=== PATIENT | male | born 1965 | race Caucasian/White ===

== ENCOUNTER → 2016-08-28 | Outpatient (CLI) | payer MEDICARE ==
[2015-09-07 17:17] VITALS: BP 175/96
[~2016-08-28] MED LIST: HYDR-2762 PO; OXYC-244 PO; VITA1TAB19 PO; WARF7.5T PO; brintellix PO
--- NOTE | 2016-08-29 03:39 | PAIN ---
DATE OF SERVICE: 08/28/2016 DIAGNOSES: 1. Cervical radiculopathy with cervical degenerative disk disease and cervical spine stenosis. 2. Lumbar radiculopathy with lumbar degenerative disk disease. HISTORY OF PRESENT ILLNESS: The patient is a 51-year-old male who returns for followup status post previous cervical and lumbar epidural steroid injections and medication management with hydrocodone. The patient last seen in January 2016. The patient was doing well with the medication and he was able to make 120 pills last for several months, but has been out now for about 3 weeks or so. The patient reports the hydrocodone is becoming less and less effective with decreasing his pain, was initially about 70-80% improvement, now is about 50% improvement and feels that he is developing some tolerance to medication. We discussed this in some detail. Most likely as he is on this for many years, we will make some adjustments for him today. The patient reports the pain is in the base of the neck and bilateral upper extremities as well as the low back where it is anywhere from a 5-10 on a scale of 10 with motion activity, is having some difficulty sleeping as well. The pain is mostly intermittent in quality, but always present and is a stabbing pain in the base of the neck, shoulders, and upper extremities as well as a stabbing pain in the low back. The patient reports muscle tightness as well as aching and dull with occasional radiation to the bilateral posterior gluteus and posterior thighs as well as the upper extremities with some tingling, more on the right than the left side, but only intermittently. The patient reports no new motor or sensory deficits, no new bowel or bladder incontinence or other complaints. PHYSICAL EXAMINATION: VITAL SIGNS: Today, the patient's blood pressure is 161/107, pulse 78, respirations 18, temperature 98.0 degrees Fahrenheit, height is 5 feet 5 inches, weighs 185 pounds. GENERAL: The patient is awake, alert, oriented, appropriate, very pleasant demeanor. HEENT: Head shows normocephalic, atraumatic. Extraocular movements are intact and symmetrical. Oral cavity shows mucous membranes moist and pink. Dentition is intact. NECK: Shows anterior throat supple without palpable lymphadenopathy noted. Swallow reflex is symmetrical. Posterior cervical musculature shows some moderate tenderness with palpation in the inferior aspect of the cervical paraspinous muscles as well as superior medial trapezius, but is symmetrical. The patient shows good rotational motion both laterally greater than 45 degrees right and left as well as full extension and full forward flexion without significant difficulty or pain reported. CHEST: Shows normal on inspection. Breath sounds are clear to auscultation bilaterally. HEART: Shows S1 and S2 clear. No murmurs are auscultated. ABDOMEN: Soft, nontender, nondistended. No palpable organomegaly is noted. No rebound or guarding demonstrated. BACK: Shows spine grossly midline. The patient has some moderate tenderness with palpation in the lumbar paraspinous musculature, but appears roughly symmetrical on inspection. No trigger points. No radiation of pain and some mild tenderness diffusely bilaterally, but without radiation. No tenderness over the sacrum or sacroiliac regions. The patient shows good rotational motion of lumbar spine, both laterally greater than 10 degrees right and left as well as extension greater than 10 degrees, forward flexion 45 degrees without exacerbation of pain. EXTREMITIES: Upper extremity deep tendon reflexes at 2+ in the biceps and triceps tendons. Lower extremities are 1+ patellar and tendo calcaneus tendons. Motor exam is strong with leather flesher strength rated at 5/5 as is biceps and triceps flexion. Lower extremities showed dorsiflexion, extension, quadriceps and hamstring flexion are all equal and 5/5 as well. Peripheral pulses are 2+ radial distribution and 1+ posterior tibial distribution. No peripheral edema is noted in any of the extremities. Options were discussed with the patient. At this time, the patient's old chart was reviewed and his current medication regimen updated. Current review of systems updated today as well. We will change the patient's hydrocodone to oxycodone 10 mg with instructions, side effects to be aware of discussed with the medication. Also, the patient's blood pressure was elevated at 161/107. We discussed this with him and he will followup with his primary care physician as well. As we did check it again, it is 162/111. The patient is not taking any medications for this currently. The patient was counseled as to follow up with his primary physician, he has an appointment in about 3 weeks by his report and will check this out with him. Follow up in approximately 2 months or as necessary. The patient would like to call for next appointment. TIFFANIE MARTINEZ MD DR: MARVEL/yany JOB#: [id number] / [id number]
== END | disposition home or self-care (01) ==
LOC: PNCL 08:06
PROVIDERS: ATTEND Anesthesiology
DX: M50.10 Cervical disc disorder with radiculopathy, unspecified cervical region (principal); M48.02 Spinal stenosis, cervical region; M51.36 Other intervertebral disc degeneration, lumbar region
CPT/HCPCS: G0463

== ENCOUNTER → 2016-10-25 | Outpatient (CLI) | payer MEDICARE ==
[2015-09-07 17:17] VITALS: BP 175/96
[~2016-10-25] MED LIST changes: +CONTRAST GIVEN MC PRN; +IOHEXOL 240 MG/ML 50ML VIAL. PO ONE; +IOHEXOL 300 MG/ML 75 ML VIAL IV ONE
--- NOTE | 2016-10-25 12:20 | RAD ---
CT of the chest, abdomen and pelvis with contrast, 10/25/2016: History: Restaging lymphoma Multidetector CT imaging was performed following oral and IV administration of contrast. No mediastinal or hilar adenopathy is seen. There is minimal calcific plaquing of the thoracic aorta. The heart is of normal size. No axillary adenopathy is evident. Two small groundglass opacities are seen posteriorly in the right lower lobe. The largest of these measures approximately 2.3 cm. Smaller groundglass and linear opacities are present medially in the right middle lobe. These opacities were not evident on the CT component of the 09/28/2014 PET/CT exam. The lungs are otherwise clear. There is no evidence of pleural fluid. No hepatic abnormality is detected. The gallbladder is unremarkable. The pancreas shows no abnormality. The spleen is of normal size. No renal or adrenal abnormality is detected. There is moderate aortoiliac calcific plaquing without evidence of aneurysm. No abdominal or pelvic adenopathy is seen. A cystic structure noted at the right groin level on the previous pelvic CT study of 01/30/2015 has resolved. There is moderate diffuse bladder wall thickening, likely due to chronic bladder outlet obstruction. This was also evident on images from the old PET/CT exam. The bowel loops are not dilated. There appears to be a small hiatal hernia. No free fluid is evident in the abdomen or pelvis. IMPRESSION: 1. Mild groundglass opacities in the right lower lobe and to a lesser degree in the right middle lobe may be due to inflammation and/or scarring. A neoplastic etiology cannot be excluded. CT follow-up is suggested. 2. No chest, abdominal or pelvic adenopathy. PQRS Compliance Statement: One or more of the following individualized dose reduction techniques were utilized for this examination: 1. Automated exposure control 2. Adjustment of the mA and/or kV according to patient size 3. Use of iterative reconstruction technique
== END | disposition home or self-care (01) ==
LOC: CT 07:00
PROVIDERS: ATTEND Internal Medicine Hematology & Oncology
DX: C81.00 Nodular lymphocyte predominant Hodgkin lymphoma, unspecified site (principal)
CPT/HCPCS: 71260; 74177; Q9966; Q9967

== ENCOUNTER → 2016-10-30 | Outpatient (CLI) | payer MEDICARE ==
[2015-09-07 17:17] VITALS: BP 175/96
[~2016-10-30] MED LIST changes: -CONTRAST GIVEN MC PRN; -IOHEXOL 240 MG/ML 50ML VIAL. PO ONE; -IOHEXOL 300 MG/ML 75 ML VIAL IV ONE; -WARF7.5T PO; +WARF7.5T48 PO
--- NOTE | 2016-10-31 02:22 | PAIN ---
DATE OF SERVICE: 10/30/2016 PROGRESS NOTE FOR PAIN CLINIC DIAGNOSES: 1. Cervical radiculopathy with cervical spinal stenosis and cervical degenerative disk disease. 2. Lumbar radiculopathy with lumbar degenerative disk disease. HISTORY OF PRESENT ILLNESS: The patient is a 51-year-old male who returns for followup status post medication management with Percocet that we changed from hydrocodone about 2 months ago. The patient is doing much better with the oxycodone this time with his neck and upper extremity pain. The patient also reports increased low back pain over the past week or so, he has been doing some increasing yard work, not a lot of it, but enough to make his back flare up. The patient does have some history of degenerative disk disease in the lumbar spine as well as the cervical spine, which we have treated in the past as well. The patient reports he is doing very well with the medication ____ about 75% improvement without significant side effects. The patient reports his pain is still anywhere from a 6-10 on a scale of 10, 10 is when he is working in the yard. He is wearing a corset as well today, a lumbar corset, which he reports does help and he wears this occasionally when he is out and about, but not all the time at home. The patient reports no new motor or sensory deficits. He does have a cough and is seeing a machine joint cutter next month regarding some scarring that was found on a chest x-ray by his report. The patient reports no new motor or sensory deficits or other complaints. PHYSICAL EXAMINATION: VITAL SIGNS: Today, the patient's blood pressure is 149/100, pulse 84, respirations are 20, temperature is 98.4 degrees Fahrenheit. Weight is 185 pounds. GENERAL: The patient is awake, alert, oriented, appropriate, very pleasant demeanor. HEENT: Shows normocephalic, atraumatic. Extraocular movements are intact and symmetrical. Oral cavity, his mucous membranes are moist and pink. Dentition is intact. NECK: Shows anterior throat supple without palpable lymphadenopathy noted. Swallow reflex is symmetrical. CHEST: Shows normal on inspection. Breath sounds are clear to auscultation bilaterally. HEART: Shows S1 and S2 clear. ABDOMEN: Obese, soft, nontender, nondistended. No palpable organomegaly is noted. No rebound or guarding is demonstrated. BACK: Shows spine grossly in the midline. Cervical paraspinous muscle shows some moderate tenderness with palpation bilaterally in the cervical paraspinous musculature, but good rotational motion as well as extension and flexion without significant difficulty, but some minor pain reported in the base of the neck and shoulders bilaterally. Lower back shows moderate tenderness, but only diffusely in the lower lumbar distribution and paraspinous distribution without radiation. No tenderness over the sacrum or sacroiliac regions. The patient shows good rotational motion both laterally as well as extension and flexion. EXTREMITIES: Show upper extremity deep tendon reflexes at 2+ in the biceps and triceps tendons. Lower extremities show 1+ patellar and tendo calcaneus tendons. Motor exam is strong with 5/5 administrative office assistant strength, biceps and triceps flexion as well as dorsiflexion, extension, quadriceps and hamstring flexion and symmetrical. PLAN: Options were discussed with the patient. We will refill the patient's oxycodone 10 mg with instructions and side effects to be aware of. Also, to have a urinalysis today as well as narcotic contract renewed today as well. The patient will follow up in approximately 2 months or sooner as necessary, was given instructions as well as side effects to be aware of with the medication. Also discussed the patient's blood pressure was rather high, especially the diastolic reading today. The patient is following up with his primary care physician early part of next month as well and will follow up with his machine joint cutter regarding his x-ray findings and recent cough. TIFFANIE MARTINEZ MD DR: MARVEL/yany JOB#: [id number] / [id number]
== END | disposition home or self-care (01) ==
LOC: PNCL 07:55
PROVIDERS: ATTEND Anesthesiology
DX: M50.10 Cervical disc disorder with radiculopathy, unspecified cervical region (principal); M48.02 Spinal stenosis, cervical region; M51.16 Intervertebral disc disorders with radiculopathy, lumbar region
CPT/HCPCS: G0463

== ENCOUNTER → 2016-12-25 | Outpatient (CLI) | payer MEDICARE ==
[2015-09-07 17:17] VITALS: BP 175/96
[~2016-12-25] MED LIST changes: -OXYC-244 PO; +OXYC-327 PO
--- NOTE | 2016-12-26 00:23 | PAIN ---
DATE OF SERVICE: 12/25/2016 DIAGNOSES: 1. Cervical radiculopathy, cervical spinal stenosis and cervical degenerative disk disease. 2. Lumbar radiculopathy with lumbar degenerative disk disease. HISTORY OF PRESENT ILLNESS: The patient is a 51-year-old male who returns for followup status post medication management after cervical epidural steroid injections and lumbar epidural steroid injections. The patient did fairly well with those, but only for a short period of time. We have been maintaining with narcotic analgesics. He has been taking Percocet 10 mg over the past 2 months and done very well with these. He reports very good level of analgesia with the medication with approximately 80% improvement, but is having increasing low back pain, which is becoming more and more noticeable mostly with standing and walking, but also with sitting, awakens him from sleep at night after about 6 hours. The patient reports it is becoming more and more noticeable with some radiation into the lower extremities occasionally, but mostly just staying in the low back. The patient reports it is worst as 10 on a scale of 10, it is least at a 7 on a scale of 10 and is 7 currently. The patient reports it is dull, aching and sharp alternating with stabbing pain occasionally and is becoming more and more constant. The patient reports no new motor or sensory deficits, no new bowel or bladder incontinence or other complaints. PHYSICAL EXAMINATION: VITAL SIGNS: Shows blood pressure 140/98, pulse 83, respirations are 20, temperature 98.3 degrees Fahrenheit, weight is 186 pounds. GENERAL: The patient is awake, alert, oriented, appropriate, very pleasant demeanor. HEENT: Head shows normocephalic, atraumatic. Extraocular movements are intact and symmetrical. Oral cavity, mucous membranes are moist and pink. Dentition is intact. NECK: Shows anterior throat supple without palpable lymphadenopathy noted. Swallow reflex is symmetrical. CHEST: Shows normal on inspection. Breath sounds clear to auscultation bilaterally. HEART: Shows S1 and S2 clear. No murmurs auscultated. ABDOMEN: Obese, soft, nontender, nondistended. No palpable organomegaly. No rebound or guarding demonstrated. BACK: Shows spine grossly in the midline. Slight exaggeration of thoracic kyphosis, mild flattening of lumbar lordotic curvature. Cervical paraspinous muscle shows some very mild tenderness with palpation in the superior medial trapezius and inferior cervical paraspinous musculature without radiation. The patient's neck shows full rotational motion of cervical spine both laterally as well as extension and flexion without pain reported. Lumbar paraspinous muscle shows symmetrical on inspection, with palpation shows some mild tenderness to palpation but only in the lower lumbar distribution and only diffusely. No tenderness over the spinous processes, sacrum or sacroiliac regions. The patient shows good rotational motion with some mild tenderness with extension as well as forward flexion, but not with right or left lateral rotation greater than 10 degrees. EXTREMITIES: Lower extremities show deep tendon reflexes at 1+ in the patellar and tendo calcaneus tendons. Motor exam is strong with 5/5 dorsiflexion and extension. Options were discussed with the patient and the patient's old chart was reviewed as his current medication regimen updated. Current review of systems updated today as well. The patient has had appropriate K-TRACS reporting as well as appropriate urinalysis to date. We have refilled the patient's Percocet for two-month prescription with instructions, side effects to be aware of discussed. Also, we will check MRI scan of the lumbar spine as the patient is having significantly increased low back pain and we will compare it to a film about 2 years ago to see if there is any significant changes or reason for the increased pain. The patient was given instruction, as well as side effects with the medication to be aware of and will follow up as scheduled. TIFFANIE MARTINEZ MD DR: MARVEL/yany JOB#: [id number] / [id number]
== END | disposition home or self-care (01) ==
LOC: PNCL 11:09
PROVIDERS: ATTEND Anesthesiology
DX: M50.10 Cervical disc disorder with radiculopathy, unspecified cervical region (principal); M48.02 Spinal stenosis, cervical region; M51.16 Intervertebral disc disorders with radiculopathy, lumbar region
CPT/HCPCS: G0463

== ENCOUNTER → 2016-12-26 | Outpatient (CLI) | payer MEDICARE ==
[2015-09-07 17:17] VITALS: BP 175/96
--- NOTE | 2016-12-26 12:34 | RAD ---
MRI Lumbar Spine without contrast History: Low back pain with bilateral leg radiculopathy Technique: Multiplanar, multi sequential noncontrast MR imaging was performed of the lumbar spine. Contrast: None Comparison: None Findings: Lumbar vertebral body stature and AP alignment are preserved. There is mild disc desiccation L5-S1, intervertebral disc spaces overall maintained. There is posterior annular tear L5-S1. Conus terminates at T12-L1. There is likely small hemangioma of the T12 vertebral body, also small focus of L1. There is no significant marrow edema. L2-L3: Spinal canal and the neural foramina are adequate. There is mild buckling of the ligamentum flavum. L3-L4: There is mild buckling of the ligamentum flavum and facet degenerative change. Neural foramina and spinal canal are adequate. L4-L5: There is mild buckling of the ligamentum flavum and facet degenerative change. There is very mild narrowing of the right neural foramen, left neural foramen adequate. Spinal canal is adequate. L5-S1: There is negligible disc osteophyte complex and bulge. There is no displacement descending S1 nerve roots, spinal canal overall adequate. There is mild to moderate right and mild left neural foramina compromise. Impression: 1. There is no significant lumbar spinal stenosis. There is [id number] right and mild left L5-S1 neural foramina compromise. Electronically signed by: Shyam Maguire MD (12/26/2016 12:31 PM)
== END | disposition home or self-care (01) ==
LOC: MRI 15:54
PROVIDERS: ATTEND Anesthesiology
DX: M99.53 Intervertebral disc stenosis of neural canal of lumbar region (principal); Z88.3 Allergy status to other anti-infective agents; Z91.048 Other nonmedicinal substance allergy status
CPT/HCPCS: 72148

== ENCOUNTER → 2017-02-26 | Outpatient (CLI) | payer MEDICARE ==
[2015-09-07 17:17] VITALS: BP 175/96
--- NOTE | 2017-02-26 13:38 | PAIN ---
DATE OF SERVICE: 02/26/2017 PROGRESS NOTE FOR PAIN CLINIC DIAGNOSES: 1. Cervical radiculopathy with cervical spinal stenosis and cervical degenerative disk disease. 2. Lumbar radiculopathy with lumbar degenerative disk disease. HISTORY OF PRESENT ILLNESS: The patient is a 51-year-old male who returns for followup status post previous cervical epidural steroid injections, lumbar epidural steroid injections and medication management. The patient is doing well with the Percocet at 10 mg up to 4 times daily. The patient reports he has had slightly more increased pain in his low back over the last month or month and a half, but otherwise doing fairly well, has had good control with his medication of about 80%-85% without significant side effects. The patient reports that his pain now is a constant, stabbing, aching pain in the low back radiating to the posterior gluteus, posterior thighs, worse at a 10 on a scale of 10 and at least at a 6 and on average at a 8 on a scale of 10. The patient reports some pain in the base of the neck as well, but not to the same extent that he has in the low back. The patient reports no new motor or sensory deficits, no new bowel or bladder incontinence, no side effects again with his medication as noted. The patient reports he is having some difficulty sleeping. He sleeps about 2 hours at a time, has to reposition, change position, get out of bed or take pain medication at night to relieve the pain, but is able to get back to sleep once this occurs. The patient reports no other complaints or findings at this time and feels he is doing fairly well with adequate amount of activity, which he is comfortable doing on a daily basis with the help of the medication. PAST MEDICAL HISTORY: Significant for Hodgkin's lymphoma with chemotherapy and radiation treatment also blood clots and arthritis. PREVIOUS SURGERY: Includes lymph node biopsies only. CURRENT MEDICATIONS: Include Coumadin, vitamin B, Brintellix and Percocet. ALLERGIES: THE PATIENT IS ALLERGIC TO NEOSPORIN AND CERTAIN TAPE ADHESIVES. FAMILY HISTORY: Significant for multiple cancers. SOCIAL HISTORY: The patient still smokes about 1/4 pack of cigarettes, does not drink any alcohol or use any illegal or illicit drugs or other substances. REVIEW OF SYSTEMS: The patient's review of systems is positive for those items mentioned the in history of present illness. It is complete and well documented on the patient's chart. PHYSICAL EXAMINATION: VITAL SIGNS: The patient's blood pressure is 152/98, pulse 73, respirations are 18, temperature 98.2 degrees Fahrenheit, height is 5 feet 5 inches and weighs 187 pounds. GENERAL: The patient is awake, alert, oriented, appropriate, very pleasant demeanor. HEENT: Head shows normocephalic, atraumatic. Extraocular movements are intact and symmetrical. Oral cavity shows mucous membranes moist and pink. Dentition is intact. NECK: Shows anterior throat supple without palpable lymphadenopathy noted. Swallow reflex is symmetrical. CHEST: Shows normal on inspection. Breath sounds are clear to auscultation bilaterally. HEART: Shows S1 and S2 clear. No murmurs auscultated. ABDOMEN: Obese, soft, nontender, nondistended. No palpable organomegaly is noted. No rebound or guarding demonstrated. BACK: The patient's back shows spine grossly in the midline. Normal appearing cervical lordotic curvature, thoracic kyphotic curvature, and lumbar lordotic curvature. The patient is wearing a lumbar support brace on initial exam, with inspection shows some tenderness with palpation on the cervical paraspinous musculature bilaterally, but only into the inferior aspect of the cervical muscles and into the superior medial and slightly lateral on the left greater than right of the trapezius musculature but without radiation and without trigger points. The patient shows full rotational motion of cervical spine, both laterally as well as extension and flexion without difficulty, low back shows inspection with symmetrical lumbar paraspinous musculature bilaterally, no asymmetry, no trigger points, with palpation shows some moderate tenderness, but only diffusely throughout the upper, middle and lower distribution of paraspinous muscles. No difficulty with rotation greater than 10 degrees right and left as well as extension and forward flexion. Lower extremities show deep tendon reflexes at 1+ in the patellar and tendo calcaneus tendons. Motor exam is strong with 5/5 dorsiflexion, extension, quadriceps and hamstring flexion. EXTREMITIES: Upper extremities show deep tendon reflexes 2+ and millinery blocker strength 5/5 as well as biceps and triceps flexion, which is equal at 5/5. Peripheral pulses are 2+ radial, 1+ posterior tibial bilaterally. Options were discussed with the patient and the patient's old chart was reviewed as his current medication regimen updated as noted and review of systems updated again as noted. We will refill the patient's oxycodone at 10 mg with instructions, side effects to be aware of. Also add Flexeril as muscle relaxant, as he may have some benefit from this. He is complaining of some spasms and tightness during the day as well as at night, mainly in the low back, but also in the neck and shoulders. The patient was given instruction as well as side effects to be aware of each of the medications and will follow up in approximately 2 months or sooner if necessary. He was given 2-month prescription refill for each. TIFFANIE MARTINEZ MD DR: MARVEL/yany JOB#: [id number] / [id number]
== END | disposition home or self-care (01) ==
LOC: PNCL 11:32
PROVIDERS: ATTEND Anesthesiology
DX: M48.02 Spinal stenosis, cervical region (principal); M54.12 Radiculopathy, cervical region; M54.16 Radiculopathy, lumbar region; M51.16 Intervertebral disc disorders with radiculopathy, lumbar region; M50.30 Other cervical disc degeneration, unspecified cervical region; Z85.71 Personal history of Hodgkin lymphoma; F17.200 Nicotine dependence, unspecified, uncomplicated
CPT/HCPCS: G0463

== ENCOUNTER → 2017-04-23 | Outpatient (CLI) | payer MEDICARE ==
[2015-09-07 17:17] VITALS: BP 175/96
[~2017-04-23] MED LIST changes: +CYCL10TA2 PO
--- NOTE | 2017-04-23 13:20 | PAIN ---
DATE OF SERVICE: 04/23/2017 DIAGNOSES: 1. Cervical radiculopathy with cervical spinal stenosis and cervical degenerative disk disease. 2. Lumbar radiculopathy with lumbar degenerative disk disease. HISTORY OF PRESENT ILLNESS: The patient is a 52-year-old male who returns for followup status post medication management with oxycodone. The patient is taking 10 mg up to 4 times daily. The patient with previous epidural steroid injections, both lumbar and cervical without significant improvement. The patient has been doing quite well on his medication management, however, with about an 80% improvement overall by his estimation, still some pain in the low back and in the lower extremities, somewhat more on the left than the right, but present bilaterally; worse with activity, standing, walking, bending or flexing. The patient reports a 10 on a scale of 10 at its worst, is 7 on average, about 7 at its least, is aching and shooting pain in the low back and legs, also has pain in the base of the neck and shoulders, but this seems to be somewhat better, again helped significantly with the medications without side effects. The patient reports he does better when he is lying down at night. The patient sleeps about 7 hours a night, but it cannot awaken him. If he does, he can reposition and generally get back to sleep without too much difficulty but sometimes does need to take a pain medication when he is awaken. The patient reports no new motor or sensory deficits, no new bowel or bladder incontinence or other complaints. PHYSICAL EXAMINATION: VITAL SIGNS: The patient's blood pressure 150/99, pulse 99, respirations 18, temperature is 98.4 degrees Fahrenheit. Height is 5 feet 5 inches, weighs 191 pounds. GENERAL: The patient is awake, alert, oriented, appropriate, very pleasant demeanor. HEENT: Head shows normocephalic, atraumatic. Extraocular movements are intact and symmetrical. Oral cavity shows mucous membranes are moist and pink. Dentition is intact. NECK: Shows anterior throat supple without palpable lymphadenopathy noted. Swallow reflex is symmetrical. CHEST: Shows normal on inspection. Breath sounds are clear to auscultation bilaterally. No rales, rhonchi or wheezes auscultated. HEART: Shows S1 and S2 clear. No murmurs auscultated. ABDOMEN: Soft, nontender, nondistended, obese. No palpable organomegaly is noted. BACK: Shows grossly midline spine, normal cervical lordotic curvature, thoracic kyphotic curvature and lumbar lordotic curvature. No previous bruises, lesions, rashes or scars are noted. Lumbar paraspinous muscle shows some moderate tenderness with palpation in the lower lumbar distribution and the middle lumbar distribution, but only diffusely without radiation. Cervical paraspinous musculature shows some mild tenderness only inferiorly, the cervical paraspinous musculature into the trapezius bilaterally as well, again mostly medially without any radiation, without any trigger points throughout the examination. EXTREMITIES: Upper extremities show deep tendon reflexes at 2+ in the biceps and triceps tendons are equal and symmetrical with global implementation manager strength 5/5 as is biceps and triceps flexion. Lower extremities showed deep tendon reflexes 1+ in the patellar and tendo calcaneus tendons. Motor exam is strong with dorsiflexion, extension, quadriceps and hamstring flexion, also rated at 5/5 and equal. Options were discussed with the patient at this time. The patient's old chart was reviewed as his current medication regimen updated. Current review of systems is updated today as well. We will refill the patient's oxycodone 10 mg for 2-month prescription. The patient was given instructions as well as side effects to be aware of the medication. He is also encouraged to increase his activity as tolerated. Continue doing stretching and strengthening exercises daily as well as walking as tolerated. The patient also was encouraged to follow up with his primary care physician and check not only prostate level, but also testosterone level as he has been on the analgesics now for a potential time, which could decrease his testosterone. The patient understands and agrees and will follow up in approximately 2 months or sooner as necessary. TIFFANIE MARTINEZ MD DR: MARVEL/yany JOB#: [id number] / [id number] JOSH Hair MD
== END | disposition home or self-care (01) ==
LOC: PNCL 11:34
PROVIDERS: ATTEND Anesthesiology
DX: M51.16 Intervertebral disc disorders with radiculopathy, lumbar region (principal); M48.02 Spinal stenosis, cervical region
CPT/HCPCS: G0463

== ENCOUNTER → 2017-06-18 | Outpatient (CLI) | payer MEDICARE ==
[2015-09-07 17:17] VITALS: BP 175/96
--- NOTE | 2017-06-18 18:43 | PAIN ---
DATE OF SERVICE: 06/18/2017 DIAGNOSES: 1. Cervical radiculopathy with cervical spinal stenosis and cervical degenerative disk disease. 2. Lumbar radiculopathy with lumbar degenerative disk disease. HISTORY OF PRESENT ILLNESS: The patient is a 52-year-old male who returns for followup status post medication management with oxycodone 10 mg and Flexeril for muscle relaxation. The patient reports he is doing quite well with this. He has been on a very stable regimen, about 80% improvement or more some days, better than others with pain in the low back as primary complaint into the right hip. The patient also reports some minor neck pain, but it is secondary. The patient reports the pain in his low back is radiating from across the low back into both thighs and into the right hip and gluteus, mostly on the posterior aspect of the gluteus and thigh, worse with walking, standing and changing positions. It is aching and shooting in quality, better with sitting or lying down. The patient reports it does not awaken him from sleep usually, but some nights it can, usually about 5-6 hours he is able to sleep without it bothering him. He usually is only lying on his right side. He can easily reposition and get back to sleep without too much difficulty or take pain medication at night. The patient reports the pain is a 10 on a scale of 10 at its worst, 7 on average, 7 at its least and is a 7 today. PHYSICAL EXAMINATION: VITAL SIGNS: The patient's blood pressure is ____, pulse 99, respirations 16, temperature is 98.3 degrees Fahrenheit, height is 5 feet 5 inches, weight is 192 pounds. GENERAL: The patient is awake, alert, oriented, appropriate, very pleasant demeanor. HEENT: Head shows normocephalic, atraumatic. Extraocular movements are intact, symmetrical. Oral cavity: Mucous membranes moist and pink. Dentition is intact. NECK: Shows anterior throat supple without palpable lymphadenopathy noted. Swallow reflex is symmetrical. CHEST: Shows normal with inspection. Breath sounds clear to auscultation bilaterally. HEART: Shows S1, S2 clear. No murmurs auscultated. ABDOMEN: Obese, soft, nontender, nondistended. No palpable organomegaly is noted. No rebound or guarding demonstrated. BACK: Shows spine grossly in the midline. Normal cervical lordotic curvature, thoracic kyphotic curvature, and lumbar lordotic curvature. Cervical paraspinous muscle shows symmetrical on inspection, with palpation shows only very mild tenderness in the middle and lower distribution of the cervical paraspinous muscles, but without radiation, without atrophy, hypertrophy and without trigger points. The patient has good rotational motion of cervical spine, both laterally, greater than 45 degrees right and left as well as full extension and full forward flexion without significant pain reported. Low back shows symmetrical on inspection with lumbar paraspinous musculature, with palpation shows some moderate tenderness bilaterally, but only diffusely in the middle and lower distribution of paraspinous muscles, again without radiation, without trigger points or asymmetry. No tenderness over the sacrum, sacroiliac regions or the spinous processes. The patient has good rotational motion of lumbar spine, both laterally, greater than 10 degrees right and left as well as extension greater than 10 degrees and forward flexion 45 degrees without significant pain reported . EXTREMITIES: Upper extremity deep tendon reflexes 2+ in the biceps and triceps tendons. Motor exam is 5/5 with hand dry cleaner strength. Bicep and tricep flexion rated at 5/5 and equal. Peripheral pulses are 2+. Lower extremities show deep tendon reflexes 1+ in the patellar tendons. Motor exam is strong with dorsiflexion and extension rated at 5/5 and equal. Peripheral pulses are 1+ posterior tibial. No peripheral edema is noted in the lower extremities as well. Options were discussed with the patient. The patient's old chart was reviewed as his current medication regimen updated. Current review of systems updated today as well and we will refill the patient's oxycodone 10 mg with instructions and side effects to be aware of and a 2-month supply. The patient has had appropriate K-TRACS reporting as well as appropriate urinalysis to date. We will have urinalysis done today as well for routine screening and update patient's narcotic contract agreement, which he is given a copy of as well. The patient was given instructions as well as side effects to be aware of with the medication. The patient will follow up in approximately 2 months or sooner if necessary, was given a 2-month prescription. The patient was encouraged to increase activity as tolerated, maintain exercise levels and walking, which he tries to do daily and increase his stretching if tolerated. TIFFANIE MARTINEZ MD DR: Phil JOB#: [id number] / [id number]
== END | disposition home or self-care (01) ==
LOC: PNCL 11:12
PROVIDERS: ATTEND Anesthesiology
DX: M51.16 Intervertebral disc disorders with radiculopathy, lumbar region (principal); M48.02 Spinal stenosis, cervical region; M50.10 Cervical disc disorder with radiculopathy, unspecified cervical region
CPT/HCPCS: G0463

== ENCOUNTER → 2017-08-13 | Outpatient (CLI) | payer MEDICARE | END | disposition home or self-care (01) | LOC: PNCL 10:37 | DX: M51.16 Intervertebral disc disorders with radiculopathy, lumbar region (principal); M50.10 Cervical disc disorder with radiculopathy, unspecified cervical region; M48.02 Spinal stenosis, cervical region; Z88.1 Allergy status to other antibiotic agents; Z88.8 Allergy status to other drugs, medicaments and biological substances; Z91.048 Other nonmedicinal substance allergy status | CPT/HCPCS: 62323 ==

== ENCOUNTER → 2017-09-11 | Outpatient (CLI) | payer MEDICARE | END | disposition home or self-care (01) | LOC: KCIC CT 10:05 | DX: R22.0 Localized swelling, mass and lump, head (principal); Z85.72 Personal history of non-Hodgkin lymphomas | CPT/HCPCS: 70450 ==

== ENCOUNTER → 2017-10-08 | Outpatient (CLI) | payer MEDICARE | END | disposition home or self-care (01) | LOC: PNCL 11:00 | DX: M50.10 Cervical disc disorder with radiculopathy, unspecified cervical region (principal); M48.02 Spinal stenosis, cervical region; M51.16 Intervertebral disc disorders with radiculopathy, lumbar region | CPT/HCPCS: G0463 ==

== ENCOUNTER → 2017-10-20 | Outpatient (CLI) | payer MEDICARE ==
[~2017-10-20] MED LIST changes: +CONTRAST GIVEN MC; -CYCL10TA2 PO; -HYDR-2762 PO; -OXYC-327 PO; -VITA1TAB19 PO; -WARF7.5T48 PO; -brintellix PO
[2017-10-20] MEDS: IOHEXOL 240 MG/ML 50ML VIAL. PO (08:45)
[2017-10-20] MEDS: IOHEXOL 300 MG/ML 100ML VIAL. IV (09:59)
== END | disposition home or self-care (01) ==
LOC: CT 07:51
DX: C81.00 Nodular lymphocyte predominant Hodgkin lymphoma, unspecified site (principal); I10 Essential (primary) hypertension; Z79.01 Long term (current) use of anticoagulants; Z87.891 Personal history of nicotine dependence
CPT/HCPCS: 71260; 74177; Q9966; Q9967

== ENCOUNTER → 2018-02-16 | Outpatient (CLI) | payer MEDICARE | END | disposition home or self-care (01) | LOC: PNCL 09:07 | DX: M50.10 Cervical disc disorder with radiculopathy, unspecified cervical region (principal); M48.02 Spinal stenosis, cervical region; M51.16 Intervertebral disc disorders with radiculopathy, lumbar region; I10 Essential (primary) hypertension; Z79.01 Long term (current) use of anticoagulants; Z85.72 Personal history of non-Hodgkin lymphomas; Z87.891 Personal history of nicotine dependence; Z85.71 Personal history of Hodgkin lymphoma | CPT/HCPCS: G0463 ==

== ENCOUNTER → 2018-06-11 | Outpatient (CLI) | payer MEDICARE ==
[2015-09-07 17:17] VITALS: BP 175/96
[~2018-06-11] MED LIST changes: +ATOR40TA59 PO; +CITA20TA6 PO; -CONTRAST GIVEN MC; +CYCL10TA2 PO; +HYDR-2765 PO; +LISI10TA2 PO; +OXYC1TAB19 PO; +OXYC1TAB22 PO; +VITA1TAB19 PO; +WARF7.5T48 PO; +brintellix PO
--- NOTE | 2018-06-11 12:50 | PAIN ---
DATE OF SERVICE: 06/11/2018 DIAGNOSES: 1. Cervical radiculopathy with cervical degenerative disk disease and cervical spinal stenosis. 2. Lumbar radiculopathy with lumbar degenerative disk disease. HISTORY OF PRESENT ILLNESS: The patient is a 53-year-old male who returns for followup status post medication management with both Flexeril and oxycodone. The patient reports he has been doing fairly well. He has been trying to wean himself down to some extent with taking about 2-2.5 tablets a day instead of up to 4, but the patient reports he ran out and was unable to afford his prescription since his last visit and after last prescription ran out in the middle of April, the patient reports he did not have any significant withdrawal symptoms, but has weaned down and doing fairly well with this, but still having some significant pain in the base of the neck and shoulders as well as the mid back and low back radiating to bilateral lower extremities. The patient reports the pain is aching, tight, cramping, becoming more constant with activity. He has been doing well with the medication; however, he has been on very stable regimen as well as with the Flexeril, which he reports can take place some of the pain medication at times. The patient reports his pain is a 10 on a scale of 10 at its worst, 8-10 on average, is 7 at its least and is an 8 today. The patient reports no new motor or sensory deficit. He does have some pain in the left shoulder without any specific injury. He reports he had some plain films taken, which were negative; however, did not have those available at time of this dictation for review. The patient reports no new motor or sensory deficits or other complaints. PHYSICAL EXAMINATION: VITAL SIGNS: The patient's blood pressure 141/97, pulse 105, respirations 18, temperature 98.8 degrees Fahrenheit. Height 5 feet 6 inches, weighs 190 pounds. GENERAL: The patient is awake, alert, oriented, appropriate, very pleasant demeanor. HEENT: Shows normocephalic, atraumatic. Extraocular movements intact and symmetrical. Oral cavity: Mucous membranes moist and pink. Dentition is intact. NECK: Shows anterior throat supple without palpable lymphadenopathy noted. Swallow reflex symmetrical. The patient's neck shows full rotational motion of cervical spine with some minor tenderness with extension, but not with forward flexion. CHEST: Shows normal with inspection. Breath sounds clear to auscultation bilaterally. HEART: Shows S1, S2 clear. No murmurs auscultated. ABDOMEN: Soft, nontender, nondistended. No palpable organomegaly is noted. No rebound or guarding demonstrated. BACK: Shows spine grossly in the midline. Slight exaggeration of thoracic kyphosis and minor flattening of lumbar lordotic curvature. Moderate tenderness in the cervical paraspinous musculature symmetrically, but without radiation, without trigger points in the middle and lower distribution of the cervical paraspinous muscles. Lumbar paraspinous muscle shows some moderate tenderness, but only diffusely, again in the upper, middle and lower distribution diffusely bilaterally. The patient has good rotational motion both the cervical spine, again with some extension with tenderness, but not with forward flexion. Low back shows good rotation greater than 10 degrees right and left as well as full extension 10 degrees, forward flexion 45 degrees without significant pain reported. The patient's extremities show upper extremity deep tendon reflexes 2+ in biceps, triceps tendons. Airplane Pilot strength is strong with 5/5 and equal bilaterally. Biceps flexion on the left is moderately painful with resistance in the anterior aspect of the upper arm and deltoid region consistent with perhaps biceps tendinitis on the left side. Right side is 5/5 without deficit. EXTREMITIES: Lower extremities show deep tendon reflexes 1+ in the patellar and tendocalcaneous tendons are equal. Motor exam is strong with 5/5 dorsiflexion, extension, quadriceps and hamstring flexion and symmetrical. Peripheral pulses are 2+ radial, 1+ posterior tibial. No peripheral edema is noted bilaterally upper or lower extremities. Options were discussed with the patient. The patient's old chart was reviewed as his current medication regimen updated. Current review of systems updated today as well, and we will refill the patient's Percocet as well as Flexeril for 2-month prescription. The patient was given instruction as well as side effects to be aware of each of medications. The patient has had appropriate K-TRACS reporting as well as appropriate urinalysis to date, and we will refill this for 2-month period. The patient will return to clinic at that time or sooner as necessary. TIFFANIE MATRINEZ MD DR: MARVEL/yany JOB#: [id number] / [id number]
== END | disposition home or self-care (01) ==
LOC: PNCL 09:22
PROVIDERS: ATTEND Anesthesiology
DX: M48.02 Spinal stenosis, cervical region (principal); M50.10 Cervical disc disorder with radiculopathy, unspecified cervical region; M51.16 Intervertebral disc disorders with radiculopathy, lumbar region
CPT/HCPCS: G0463

== ENCOUNTER → 2018-08-06 | Outpatient (CLI) | payer MEDICARE ==
[2015-09-07 17:17] VITALS: BP 175/96
--- NOTE | 2018-08-06 10:51 | PAIN ---
DATE OF SERVICE: 08/06/2018 PROGRESS NOTE FOR PAIN CLINIC DIAGNOSES: 1. Lumbar radiculopathy with lumbar degenerative disk disease. 2. Cervical radiculopathy with cervical spinal stenosis and cervical degenerative disk disease. HISTORY OF PRESENT ILLNESS: The patient is a 53-year-old male who returns for followup status post medication management with Percocet and Flexeril. The patient reports he is doing very well with this and has been on very stable regimen with about a 75% improvement overall with his pain in the low back and also in the neck and shoulder. His main complaint today is left shoulder pain. He is going to see an orthopedic surgeon about this later next week but reports otherwise has been doing fairly well with his medication regimen, is on a very stable regimen. The patient reports still some pain in the neck as well as in the low back aching, cramping, stabbing at times, on and off in intensity, worse with activity, standing, walking, better with sitting or lying down, does not awaken him from sleep at night, most nights. His medications were tolerated well without side effects. The patient reports the pain is 10 on a scale 10 at its worst, 8 on average and 6 at its least and his main pain is in the left shoulder. It is difficult for him to twist items or rotate his arm or lift anything for more than few seconds with his left arm. Again, the patient is having this evaluated with the orthopedic specialists soon. The patient reports no new motor or sensory deficits and no new bowel or bladder incontinence or other complaints. PHYSICAL EXAMINATION: VITAL SIGNS: The patient's blood pressure 169/113, pulse 107, respirations 16 and temperature 98.2 degrees Fahrenheit. Weight is 190 pounds. GENERAL: The patient is awake, alert, oriented, appropriate and very pleasant demeanor. HEENT: Head shows normocephalic and atraumatic. Extraocular movements are intact and symmetrical. Oral cavity: Mucous membranes moist and pink. Dentition is intact. NECK: Shows anterior throat supple without palpable lymphadenopathy noted. Swallow reflex symmetrical. CHEST: Shows normal with inspection. Breath sounds clear to auscultation bilaterally. HEART: Shows S1 and S2 clear. No murmurs auscultated. ABDOMEN: Soft, nontender and nondistended. No palpable organomegaly is noted. No rebound or guarding demonstrated. BACK: Shows spine grossly in the midline. Cervical paraspinous muscle shows symmetrical but with palpation shows some mild tenderness diffusely in the low cervical distribution without radiation. The patient has good rotational motion of the cervical spine, both laterally as well as extension and flexion without difficulty. The patient's low back shows symmetrical as well without atrophy, hypertrophy with palpation shows some moderate tenderness diffusely throughout the upper, middle and lower distribution of the paraspinous muscles bilaterally but only diffusely. The patient has good rotational motion both laterally greater than 10 degrees, right and left as well as extension greater than 10 degrees, forward flexion 45 degrees without difficulty in the lumbar spine. EXTREMITIES: The patient's lower extremities show deep tendon reflexes at 1+ in the patellar and tendo-calcaneus tendons. Motor exam is strong with 5/5 dorsiflexion and extension. Upper extremities show deep tendon reflexes 2+ in the biceps and triceps tendons. Motor exam is strong with mastic sprayer strength rated at 5/5 and equal. The patient's left shoulder does show some moderate tenderness with abduction at about 45 degrees and the patient grimaces with pain and with resistance but without loss of strength. Options were discussed with the patient. The patient's old chart was reviewed as well as his current medication regimen updated. Current review of systems updated today as well. We will refill the patient's medication both the Percocet 10 mg and Flexeril 10 mg with instructions and side effects to be aware of. The patient has had appropriate K-TRACS reporting as well as appropriate urinalysis to date. We will refill the patient's medication for 2-month period with instructions and side effects to be aware of each of these medications. We will have a UA taken today as well as routine screening and renewal of the patient's narcotic contract as well. TIFFANIE MARTINEZ MD DR: MARVEL/yany JOB#: [id number] / [id number]
== END | disposition home or self-care (01) ==
LOC: PNCL 09:55
PROVIDERS: ATTEND Anesthesiology
DX: M51.16 Intervertebral disc disorders with radiculopathy, lumbar region (principal); M48.02 Spinal stenosis, cervical region; M50.10 Cervical disc disorder with radiculopathy, unspecified cervical region
CPT/HCPCS: G0463

== ENCOUNTER → 2018-10-01 | Outpatient (CLI) | payer MEDICARE ==
[2015-09-07 17:17] VITALS: BP 175/96
[~2018-10-01] MED LIST changes: +BUPIVACAINE MPF 0.25% 10 ML VIAL. ONE; +IOHEXOL 180 MG/ML 10 ML VIAL. ONE; +methylPREDNISolone ACETATE 80 MG/ML VIAL. ONE
--- NOTE | 2018-10-01 22:56 | PAIN ---
DATE OF SERVICE: 10/01/2018 PROGRESS NOTE FOR PAIN CLINIC: DIAGNOSES: 1. Cervical radiculopathy with cervical degenerative disk disease and cervical spinal stenosis. 2. Lumbar radiculopathy with lumbar degenerative disk disease. 3. Left shoulder joint pain with osteoarthritis as well. HISTORY OF PRESENT ILLNESS: The patient is a 53-year-old male who returns for followup status post medication management with both oxycodone and Flexeril. The patient has done fairly well with this. He has recent x-rays on his left shoulder showing some moderate arthritic changes in the left shoulder joint itself. The patient reports significant pain in the left shoulder with any motion of the left shoulder, reaching or grabbing items, reaching over his head, reaching to the side as well as lifting items with his left arm. The patient reports it radiates into the left anterior deltoid as well as the posterior shoulder and sometimes into the neck or back on the left side as well. The patient reports a 9 on a scale of 10 at its worst, 7 on average, 5 at its least and is a 7 today. The patient reports it is aching, becoming more constant, especially with activities, disturbing him from sleep about every 6 hours if he lies on the left side. The patient reports no loss of motor function, but significant fatigability and pain with motion of the left shoulder especially reaching forward and lifting items. The patient reports no new motor or sensory deficits. Still some pain in the base of the neck as well as the low back, which were fairly well controlled with the medications about 75-80% without side effects. PHYSICAL EXAMINATION: VITAL SIGNS: Today, the patient's blood pressure 137/97, pulse 94, respirations 18, temperature 98.1 degrees Fahrenheit, height is 5 feet 4 inches, weighs 193 pounds. GENERAL: The patient is awake, alert, oriented, appropriate, very pleasant demeanor. HEENT: Head shows normocephalic, atraumatic. Extraocular movements are intact and symmetrical. Oral cavity, mucous membranes are moist and pink. Dentition is intact. NECK: Shows anterior throat supple without palpable lymphadenopathy noted. Swallow reflex symmetrical. CHEST: Shows normal with inspection. Breath sounds clear to auscultation bilaterally. HEART: Shows S1, S2 clear. No murmurs auscultated. ABDOMEN: Soft, nontender, nondistended. No palpable organomegaly is noted. No rebound or guarding demonstrated. BACK: Shows spine grossly in the midline. Normal appearing thoracic kyphosis and lumbar lordotic curvature slightly flattened. Lumbar paraspinous muscle shows symmetrical on inspection, with palpation shows moderate tenderness in the lumbar distribution bilaterally. EXTREMITIES: Upper extremities show deep tendon reflexes 2+ in the biceps and triceps tendons. Motor exam is strong with food processing plant manager strength rated at 5/5 at his bicep and tricep flexion bilaterally. Left shoulder shows significant tenderness with abduction of the shoulder especially with forward reach and motion with resistance. The patient shows good shoulder shrug without loss of strength on resistance, but significant tenderness with palpation over the anterior deltoid, posterior deltoid, but not the lateral deltoid on the left side. Right side shows full rotational motion without difficulty. No pain with palpation. Upper extremity deep tendon reflexes 2+ bilaterally. Dovetail Machine Operator strength is strong with 5/5 bilaterally as well as bicep and tricep flexion. Peripheral pulses are 2+ radial distribution. No peripheral edema is noted bilaterally. Options were discussed with the patient. The patient's old chart was reviewed as his current medication regimen updated. Current review of systems updated today as well and we will proceed with a left intra-articular shoulder joint injection. The patient has been off his Coumadin now for 5 days. Risks were again discussed including, but not limited to bleeding, infection, possibility of intravascular injection sequelae, spread of local anesthetic and numbness, side effects of steroid medication, exposure to fluoroscopy and poor results regarding pain control. The patient understands and wished to proceed. The patient will return to clinic in approximately 4 weeks for followup, was counseled on return appointment, activity level and side effects to be aware of. We will give the patient refill prescription as well for oxycodone as well as Flexeril and instructions, side effects to be aware of. The patient has had appropriate K-TRACS reporting as well as appropriate urinalysis to date and we will refill this for a 2-month period. The patient will follow up as scheduled. DIAGNOSIS: Left shoulder joint pain with primary osteoarthritis, left shoulder joint. PROCEDURE: Left intra-articular shoulder joint injection using C-arm fluoroscopic guidance under sterile prep and drape using local anesthetic. MEDICATION INJECTED: A total of 80 mg Depo-Medrol plus total of 3 mL of 0.25% bupivacaine and 2 mL Isovue for contrast. CONDITION AT DISCHARGE: Stable. The patient tolerated the procedure well, had no complications. TIFFNAIE MARTINEZ MD DR: MARVEL/yany JOB#: [id number] / [id number]
== END | disposition home or self-care (01) ==
LOC: PNCL 09:56
PROVIDERS: ATTEND Anesthesiology
DX: M19.012 Primary osteoarthritis, left shoulder (principal); M51.16 Intervertebral disc disorders with radiculopathy, lumbar region; M50.10 Cervical disc disorder with radiculopathy, unspecified cervical region; M48.02 Spinal stenosis, cervical region; Z88.1 Allergy status to other antibiotic agents; Z88.8 Allergy status to other drugs, medicaments and biological substances
CPT/HCPCS: 20610; 77002; J1040; J3490; Q9965

== ENCOUNTER → 2018-11-26 | Outpatient (CLI) | payer MEDICARE ==
[2015-09-07 17:17] VITALS: BP 175/96
[~2018-11-26] MED LIST changes: -BUPIVACAINE MPF 0.25% 10 ML VIAL. ONE; -IOHEXOL 180 MG/ML 10 ML VIAL. ONE; -methylPREDNISolone ACETATE 80 MG/ML VIAL. ONE
--- NOTE | 2018-11-26 22:55 | PAIN ---
DATE OF SERVICE: 11/26/2018 PROGRESS NOTE FOR PAIN CLINIC DIAGNOSES: 1. Cervical radiculopathy with cervical spinal stenosis and cervical degenerative disk disease. 2. Lumbar radiculopathy with lumbar degenerative disk disease. 3. Left shoulder joint pain with primary osteoarthritis. HISTORY OF PRESENT ILLNESS: The patient is a 53-year-old male who returns for followup status post left shoulder joint injection. He reports good, about 50% improvement in the left shoulder. The patient reports otherwise he is doing fairly well. He still has some pain in the base of the neck and shoulders bilaterally as well as the low back and bilateral lower extremities, but well controlled with his medication at this time. The patient reports have been decreasing his medication on his own to a moderate extent and does not need refills of his medications today. He is taking Flexeril and Percocet, but he is decreasing that; he is only taking maybe 1-2 a day instead of up to a 3-4. The patient reports the pain is still there, but fairly well controlled, again with the pain medications by about 75%. The patient reports his pain is a 10 on a scale of 10 at its worst over the past week, 7-8 on average and a 6-7 at its least and is a 7 today. The patient reports it is aching, sharp, tight, shooting, cramping, stabbing, radiating in the base of the neck and left shoulder as well as in the low back and bilateral lower extremities. The patient reports no loss of motor function. No new motor or sensory deficits. The patient reports he is sleeping well at night. It occasionally awakens him from sleep, but not before about 5-6 hours of sleeping. The patient reports no new motor or sensory deficits, no bowel or bladder incontinence and no other complaints. PHYSICAL EXAMINATION: VITAL SIGNS: The patient's blood pressure is 144/90, pulse 94, respirations 18 and temperature 98.2 degrees Fahrenheit. Height is 5 feet 4 inches, weighs 198 pounds. GENERAL: The patient is awake, alert, oriented, appropriate, very pleasant demeanor. HEENT EXAMINATION: Shows normocephalic, atraumatic. Extraocular movements are intact and symmetrical. Oral cavity, mucous membranes are moist and pink. Dentition is intact. NECK: Shows anterior throat supple, without palpable lymphadenopathy noted. Swallow reflex is symmetrical. CHEST: Shows normal on inspection. Breath sounds are clear to auscultation bilaterally. HEART: Shows S1, S2 clear. No murmurs auscultated. ABDOMEN: Soft, nontender and nondistended. No palpable organomegaly is noted. No rebound or guarding demonstrated. BACK: Shows spine grossly in the midline. Cervical paraspinous muscle shows symmetrical on inspection. On palpation, there is some moderate tenderness diffusely bilaterally, but only diffusely without radiation. This is true into the superior medial trapezius as well bilaterally. The patient has good rotational motion of the cervical spine, both laterally as well as extension and flexion without difficulty. The patient's lower back shows symmetrical paraspinous musculature in the lumbar distribution, with some mild tenderness throughout the upper, middle and lower distribution of the paraspinous muscles, but only diffusely without radiation. The patient has good rotational motion of the lumbar spine as well, greater than 10 degrees right and left as well as extension and greater than 10 degrees, forward flexion 45 degrees without difficulty. EXTREMITIES: Upper extremities show deep tendon reflexes 2+ in the biceps and triceps tendons. 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 Lower extremities show deep tendon reflexes 1+ in the patellar and tendo calcaneus tendons. Motor exam is strong with 5/5 dorsiflexion and extension as well. Peripheral pulses are 2+ radial and 1+ posterior tibial. No peripheral edema is noted. Options were discussed with the patient. The patient's old chart was reviewed as was his current medication regimen updated. Current review of systems updated today as well. We will hold on any further refill of the patient's medications as he has been decreasing this on his own. He has had appropriate K-TRACS reporting as well as appropriate urinalysis to date. We will have him return to the clinic in approximately 2 months. He reports he should be able to make his medications last until that time or sooner if necessary. The patient was cautioned as to medication regimen as well as the side effects to be aware of and follow up as scheduled. TIFFANIE MARTINEZ MD DR: MARVEL/yany JOB#: [id number] / [id number]
== END | disposition home or self-care (01) ==
LOC: PNCL 09:52
PROVIDERS: ATTEND Anesthesiology
DX: M19.012 Primary osteoarthritis, left shoulder (principal); M51.16 Intervertebral disc disorders with radiculopathy, lumbar region; M50.10 Cervical disc disorder with radiculopathy, unspecified cervical region; M48.02 Spinal stenosis, cervical region
CPT/HCPCS: G0463

== ENCOUNTER → 2019-01-20 | Outpatient (CLI) | payer MEDICARE ==
[2015-09-07 17:17] VITALS: BP 175/96
[~2019-01-20] MED LIST changes: +BUPIVACAINE MPF 0.25% 10 ML VIAL. ONE; +IOHEXOL 180 MG/ML 10 ML VIAL. ONE; +methylPREDNISolone ACETATE 80 MG/ML VIAL. ONE
--- NOTE | 2019-01-20 12:55 | PAIN ---
DATE OF SERVICE: 01/20/2019 DIAGNOSES: 1. Cervical radiculopathy with cervical degenerative disk disease and cervical spinal stenosis. 2. Lumbar radiculopathy with lumbar degenerative disk disease. 3. Left shoulder pain with primary osteoarthritis. HISTORY OF PRESENT ILLNESS: The patient is a 53-year-old male who returns for followup status post previous left shoulder joint injection as well as medication management with both Percocet and Flexeril. The patient reports he has been doing very well with his medication management, but his left shoulder has been hurting again. He did help catch a woman at [facility] who fell in front of him a few months ago, and he kept her from falling to the ground, but it pulled on his left shoulder and has been fairly painful. He did very well after injection, more so with the shoulder. The pain is returning now with lifting activity, especially reaching forward and lifting. The patient reports otherwise doing fairly well. Pain in the neck and shoulders as well as the back. Describes as aching, shooting, stabbing at times, tingling, on and off in the left arm. The patient reports the pain is a 10 on a scale of 10 at its worst, 6-7 on average, 5-6 at its least and is a 7 today. The patient reports no new motor or sensory deficits, no new changes. Again, no side effects with medication. PHYSICAL EXAMINATION: VITAL SIGNS: The patient's blood pressure 139/92, pulse 93, respirations 18, temperature 98.3 degrees Fahrenheit, height is 5 feet 4 inches, weight is 191 pounds. GENERAL: The patient is awake, alert, oriented, appropriate, very pleasant demeanor. HEENT: Head is normocephalic, atraumatic. Extraocular movements intact and symmetrical. Oral cavity: Mucous membranes are moist and pink. Dentition is intact. NECK: Shows anterior throat supple without palpable lymphadenopathy noted. Swallow reflex symmetrical. CHEST: Shows normal with inspection. Breath sounds clear to auscultation bilaterally. HEART: Shows S1, S2 clear. No murmurs auscultated. ABDOMEN: Soft, nontender, nondistended. No palpable organomegaly is noted. No rebound or guarding demonstrated. BACK: The patient's back shows spine grossly in the midline. Cervical paraspinous muscle shows symmetrical on inspection, on palpation shows moderate tenderness, but only diffusely in the inferior aspect of the cervical paraspinous musculature and superior trapezius bilaterally. EXTREMITIES: The patient's upper extremities show deep tendon reflexes 2+ in the biceps, triceps tendons. 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 Bicep and tricep flexion slightly decreased with resistance on the left at 4/5 biceps and 5/5 triceps, right side is 5/5 bicep and triceps. Lower extremities show deep tendon reflexes 1+ in tendo calcaneus tendons. Motor exam is strong with dorsiflexion, extension, quadriceps and hamstring flexion equal at 5 bilaterally. The patient's left shoulder shows good articulation and external rotation, but again with resistance and biceps flexion shows significant pain in the anterior aspect of the shoulder as well as the lateral deltoid with good passive rotational motion. No clicking or ratcheting. Options were discussed with the patient. The patient's old chart was reviewed as his current medication regimen updated. Current review of systems updated today as well. We will proceed with a left intra-articular shoulder joint injection today with fluoroscopic guidance. Risks were again discussed including, but not limited to bleeding, infection, possibility of intravascular injection sequelae, spread of local anesthetic and numbness, side effects of steroid medication and poor results regarding pain control. The patient understands and wished to proceed. The patient will return to clinic in approximately 2 weeks for followup, was counseled on return appointment, activity level and side effects to be aware of. DIAGNOSES: Left shoulder joint pain with primary osteoarthritis, left shoulder joint. PLAN: Refill the patient's Flexeril as well as oxycodone for 2-month prescription. The patient has had appropriate K-TRACS and urinalysis to date. We will refill this for 2-month period PROCEDURES: Left intra-articular shoulder injection glenohumeral with C-arm fluoroscopic guidance under sterile prep and drape using local anesthetic. MEDICATION INJECTED: A total of 80 mg Depo-Medrol, plus 3 mL of 0.25% bupivacaine and 1.5 mL of contrast. CONDITION AT DISCHARGE: Stable. The patient tolerated the procedure well, had no complications.. TIFFANIE MARTINEZ MD DR: MARVEL/yany JOB#: [id number] / [id number]
== END ==
LOC: PNCL 09:27
PROVIDERS: ATTEND Anesthesiology
DX: M19.012 Primary osteoarthritis, left shoulder (principal); M51.16 Intervertebral disc disorders with radiculopathy, lumbar region; M48.02 Spinal stenosis, cervical region; M50.10 Cervical disc disorder with radiculopathy, unspecified cervical region
CPT/HCPCS: 20610; 77002; J1040; J3490; Q9965

== ENCOUNTER → 2019-03-17 | Outpatient (CLI) | payer MEDICARE ==
[2015-09-07 17:17] VITALS: BP 175/96
[~2019-03-17] MED LIST changes: -BUPIVACAINE MPF 0.25% 10 ML VIAL. ONE; +HYDR-2769 PO; -IOHEXOL 180 MG/ML 10 ML VIAL. ONE; -methylPREDNISolone ACETATE 80 MG/ML VIAL. ONE
--- NOTE | 2019-03-17 20:40 | PAIN ---
DATE OF SERVICE: 03/17/2019 PROGRESS NOTE FOR PAIN CLINIC DIAGNOSES: 1. Cervical radiculopathy with cervical degenerative disk disease and cervical spinal stenosis. 2. Lumbar radiculopathy with lumbar degenerative disk disease. 3. Left shoulder joint pain with primary osteoarthritis, left shoulder joint. HISTORY OF PRESENT ILLNESS: This is a 53-year-old male who returns for followup status post medication management and the left shoulder joint injection x 2. The patient reports that shoulder doing much better, about 80% improvement after the last injection. He is doing quite well. His main complaint is low back. He has had some significant pain. He did help move a couch, he just ____ across the floor. About a week ago, the pain has been much worse in his low back since that time. The patient reports it is tingling, cramping, stabbing, aching, sharp, shooting, radiating into the lower extremities at times. The patient reports his pain is a 10 on a scale of 10 at worst in the past week, 7 on average, 7 at its least, and is a 7 today. The patient reports that his pain medication seems to be developing some tolerance to he is not having much decrease in pain from that his oxycodone that he takes. The patient reports otherwise no new motor or sensory deficits, no new bowel or bladder incontinence. Again, shoulder doing much better. PHYSICAL EXAMINATION: VITAL SIGNS: The patient's blood pressure 139/96, pulse 91, respirations 16, temperature 98.4 degrees Fahrenheit, weight is 191 pounds. GENERAL: The patient is awake, alert, oriented, appropriate, very pleasant demeanor. HEENT: Shows normocephalic, atraumatic. Extraocular movements are intact and symmetrical. Oral cavity: Mucous membranes moist and pink. Dentition is intact. NECK: Shows anterior throat supple without palpable lymphadenopathy noted. Swallow reflex symmetrical. CHEST: Shows normal on inspection. Breath sounds clear to auscultation bilaterally. HEART: Shows S1, S2 clear. No murmurs auscultated. ABDOMEN: Soft, nontender, nondistended. No palpable organomegaly is noted. No rebound or guarding demonstrated. BACK: Shows spine grossly in the midline. Normal appearing thoracic kyphosis and lumbar lordotic curvature is slightly flattened. Lumbar paraspinous muscle shows symmetrical on inspection, with palpation shows some moderate tenderness diffusely throughout the upper, middle and lower distribution of paraspinous muscles, but with good rotational motion both laterally as well as extension and flexion without significant difficulty. EXTREMITIES: The patient's lower extremities show deep tendon reflexes at 2+ in the patellar, 1+ tendo-calcaneus tendons. Motor exam is approximately 5/5 and symmetrical with dorsiflexion, extension, quadriceps and hamstring flexion. The patient's left shoulder shows good rotational motion with good strength and active and passive rotation without crepitus or ratcheting. Options were discussed with the patient. The patient's old chart was reviewed as his current medication regimen updated. Current review of systems updated today as well. We will change the patient's oxycodone to hydrocodone 10 mg and maintain the patient's Flexeril 10 mg as well. The patient was given instruction as well as side effects to be aware of with the medications. The patient had appropriate K-TRACS reporting as well as appropriate urinalysis to date. We will refill the patient's medication for a 2-month prescription. The patient was cautioned as to the change in prescription given instruction as well as side effects to be aware of with each of the medications. The patient will follow up in approximately 2 months or sooner as necessary. We discussed possible lumbar epidural steroid injection in the future as he has had these in the past may have been temporary ineffectiveness, but were effective. He will consider this as well. TIFFANIE MARTINEZ MD DR: MARVEL/yany JOB#: [id number] / [id number]
== END | disposition home or self-care (01) ==
LOC: PNCL 09:19
PROVIDERS: ATTEND Anesthesiology
DX: M51.16 Intervertebral disc disorders with radiculopathy, lumbar region (principal); M50.10 Cervical disc disorder with radiculopathy, unspecified cervical region; M48.02 Spinal stenosis, cervical region; M19.012 Primary osteoarthritis, left shoulder
CPT/HCPCS: G0463

== ENCOUNTER → 2019-05-12 | Outpatient (CLI) | payer MEDICARE ==
[2015-09-07 17:17] VITALS: BP 175/96
--- NOTE | 2019-05-12 10:48 | PAIN ---
DATE OF SERVICE: 05/12/2019 PROGRESS NOTE FOR PAIN CLINIC DIAGNOSES: 1. Cervical radiculopathy with cervical degenerative disk disease and cervical spinal stenosis. 2. Lumbar radiculopathy with lumbar degenerative disk disease. 3. Left shoulder joint pain with osteoarthritis. HISTORY OF PRESENT ILLNESS: The patient is a 54-year-old male who returns for followup status post left shoulder joint injections as well as medication management with hydrocodone and Flexeril. The patient reports he has been doing very well, his shoulder is doing quite well, still has some pain in the low back, it is his main complaint. We discussed a lumbar epidural steroid injection with him last time, he is still apprehensive and not willing to try this just yet as he had some in the distant past, but were not helpful. The patient reports his medication, however, is doing a good job in decreasing the pain by about a 75-80% improvement without significant side effects. The patient reports the pain is a 10 on a scale of 10, it is back, its worst over the past week, 8 on average, 7 at its least and is a 7 today. The patient reports it is aching, shooting, cramping, stabbing, radiating, on and off in intensity, better with sitting or lying down, does not awaken him from sleep, worse with walking, standing, changing positions and walking mostly is what exacerbates the pain. The patient reports no significant radiation to lower extremities currently, but some in the lateral thighs on occasion. The patient reports no new changes, no bowel or bladder incontinence or other complaints. PHYSICAL EXAMINATION: VITAL SIGNS: The patient's blood pressure 143/101, pulse 98, respirations 18, temperature 98.6 degrees Fahrenheit, height is 5 feet 4 inches and weight is 194 pounds. GENERAL: The patient is awake, alert, oriented, appropriate, very pleasant demeanor. HEENT: Head shows normocephalic, atraumatic. Extraocular movements are intact and symmetrical. Oral cavity: Mucous membranes moist and pink. Dentition is intact. NECK: Shows anterior throat supple without palpable lymphadenopathy noted. Swallow reflex symmetrical. CHEST: Shows normal on inspection. Breath sounds clear to auscultation bilaterally. HEART: Shows S1, S2 clear. No murmurs auscultated. ABDOMEN: Soft, nontender, nondistended. BACK: Shows spine grossly in the midline. Normal appearing thoracic kyphosis, some minor flattening of lumbar lordotic curvature. Lumbar paraspinous muscle shows symmetrical on inspection, on palpation shows some moderate tenderness diffusely, but only diffusely without radiation. EXTREMITIES: The patient's lower extremities show deep tendon reflexes at 2+ in the patellar and 1+ tendo-calcaneus tendons. Motor exam is strong with 5/5 dorsiflexion, extension and equal. Peripheral pulses are 1+ in the posterior tibia. No peripheral edema is noted bilaterally. Options were discussed with the patient. The patient's old chart was reviewed as his current medication regimen updated. Current review of systems updated today as well. We will proceed with refilling the patient's hydrocodone and Flexeril. The patient has had appropriate K-TRACS reporting as well as appropriate urinalysis to date. We will refill this for a 2-month period. The patient was given instruction as well as side effects to be aware of each of the medications. We will follow up in approximately 2 months or sooner as necessary. TIFFANIE MARTINEZ MD DR: MARVEL/yany JOB#: [id number] / [id number]
== END | disposition home or self-care (01) ==
LOC: PNCL 09:27
PROVIDERS: ATTEND Anesthesiology
DX: M51.16 Intervertebral disc disorders with radiculopathy, lumbar region (principal); M50.10 Cervical disc disorder with radiculopathy, unspecified cervical region; M48.02 Spinal stenosis, cervical region; M19.012 Primary osteoarthritis, left shoulder
CPT/HCPCS: G0463

== ENCOUNTER → 2019-08-03 | Outpatient (CLI) | payer MEDICARE ==
[2015-09-07 17:17] VITALS: BP 175/96
--- NOTE | 2019-08-03 14:18 | PAIN ---
DATE OF SERVICE: 08/03/2019 PROGRESS NOTE FOR PAIN CLINIC DIAGNOSES: 1. Cervical radiculopathy with cervical degenerative disk disease and cervical spinal stenosis. 2. Lumbar radiculopathy with lumbar degenerative disk disease. 3. Left shoulder joint pain with osteoarthritis. HISTORY OF PRESENT ILLNESS: The patient is a 54-year-old male, who returns for followup status post medication management as well as left intra-articular shoulder joint injection, most recently on 01/20/2019. The patient did very well about 80% improvement with this. The patient reports overall about a 75% improvement with the medications, taken hydrocodone as well as Flexeril. The patient reports that it increases ability to function at home and working activities, household activities, sleeping with greater ease. No significant side effects with the medication as well. The patient reports his pain is a 10 on a scale of 10 at its worst over the past week due to his left shoulder joint pain, 8-9 on average and 8 at its least and is a 9 today. The patient reports it is aching, sharp, shooting, stabbing in the left shoulder and into the bicep as well with activity, raising his hand over his head on the left side or with weightbearing, repetitive motion of the left arm. The patient reports no new motor or sensory deficits, no new bowel or bladder incontinence. PHYSICAL EXAMINATION: VITAL SIGNS: The patient's blood pressure 150/96, pulse 93, respirations 18, temperature 98.1 degrees Fahrenheit, and weight is 192 pounds. GENERAL: The patient is awake, alert, oriented, appropriate, very pleasant demeanor. HEENT: Shows normocephalic, atraumatic. Extraocular movements are intact and symmetrical. Oral cavity: Mucous membranes are moist and pink. Dentition is intact. NECK: Shows anterior throat supple without palpable lymphadenopathy noted. Swallow reflex symmetrical. Neck shows full rotational motion of cervical spine, both laterally as well as extension and flexion without significant increase in pain. CHEST: Shows breath sounds clear to auscultation bilaterally. HEART: Shows S1, S2 clear. ABDOMEN: Soft, nontender, nondistended. BACK: Shows spine grossly in the midline, normal-appearing cervical lordotic curvature, slightly increased thoracic kyphotic curvature, some minor flattening of lumbar lordotic curvature. Lumbar paraspinous muscle shows symmetrical on inspection, with palpation shows some mild tenderness diffusely throughout the upper, middle and lower distribution of paraspinous muscles, but good rotational motion both laterally as well as extension and flexion without difficulty. EXTREMITIES: The patient's upper extremities show deep tendon reflexes 2+ in the biceps and triceps tendons. 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 The patient's left shoulder shows some significant tenderness with abduction of the shoulder and resistance, but without loss of strength. Right side is nontender. Lower extremities show deep tendon reflexes 1+ in the patellar and tendo calcaneus tendons. Motor exam is strong with 5/5 dorsiflexion, extension, quadriceps and hamstring flexion. Peripheral pulses are 2+ radial, 1+ posterior tibia. No peripheral edema is noted in the upper or lower extremities. Options were discussed with the patient. The patient's old chart was reviewed as his current medication regimen updated. Current review of systems updated today as well. We will refill the patient's medications today, hydrocodone as well as Flexeril with instructions, side effects to be aware of discussed. The patient has had appropriate K-TRACS reporting as well as appropriate urinalysis to date. We have urinalysis drawn today for routine screening and the patient was given instruction as well as side effects to be aware of each medications and we will follow up in approximately 1 week for left shoulder joint injection. The patient is on Coumadin until we will hold this now as he has had previous clearance to do this with his primary care physician. We will check INR and plan on left intra-articular shoulder joint injection upon return. TIFFANIE MARTINEZ MD DR: MARVEL/yany JOB#: [id number] / [id number]
== END | disposition home or self-care (01) ==
LOC: PNCL 10:00
PROVIDERS: ATTEND Anesthesiology
DX: M51.16 Intervertebral disc disorders with radiculopathy, lumbar region (principal); M50.10 Cervical disc disorder with radiculopathy, unspecified cervical region; M48.02 Spinal stenosis, cervical region; M19.012 Primary osteoarthritis, left shoulder
CPT/HCPCS: G0463

== ENCOUNTER → 2019-08-11 | Outpatient (CLI) | payer MEDICARE ==
[2015-09-07 17:17] VITALS: BP 175/96
[~2019-08-11] MED LIST changes: +BUPIVACAINE MPF 0.25% 10 ML VIAL. ONE; +IOHEXOL 180 MG/ML 10 ML VIAL. ONE; +methylPREDNISolone ACETATE 80 MG/ML VIAL. ONE
--- NOTE | 2019-08-12 03:33 | PAIN ---
DATE OF SERVICE: 08/11/2019 PROGRESS NOTE FOR PAIN CLINIC DIAGNOSES: 1. Cervical radiculopathy with cervical degenerative disk disease and cervical spinal stenosis. 2. Lumbar radiculopathy with lumbar degenerative disk disease. 3. Left shoulder joint pain with primary osteoarthritis of left shoulder joint. HISTORY OF PRESENT ILLNESS: The patient is a 54-year-old male who returns for followup status post medication management, also previous left shoulder joint injection on 01/20/2019. The patient did very well with about 80% improvement. The patient reports his pain is beginning to increase again in the left shoulder with repetitive use, reaching over his head with his arm, any weightbearing in the left shoulder, repetitive motion and I have described this after his last visit for medication refill. He is doing very well with this again with no side effects from his medications and with about 75-80% improvement overall for his neck and back pain. The patient reports that the pain in his shoulder is awakening him about every 5-6 hours at night and he can usually reposition to get back to sleep. It is becoming more noticeable as aching and sharp, described as shooting into the arm and deltoid and the posterior scapula as well and radiating into the forearm. The patient reports it is worst at 10 on a scale of 10 in the past week, 8-9 on average and 8 at its least and is an 8 today. The patient reports no new motor or sensory deficits, no new changes. PHYSICAL EXAMINATION: VITAL SIGNS: The patient's blood pressure is 139/87, pulse 81, respirations 18, temperature 97.7 degrees Fahrenheit, height is 5 feet 4 inches, weight is 180 pounds. GENERAL: The patient is awake, alert, oriented, appropriate, very pleasant demeanor. HEENT: Shows normocephalic, atraumatic. Extraocular movements are intact and symmetrical. Oral cavity: Mucous membranes moist and pink. Dentition is intact. NECK: Shows anterior throat supple without palpable lymphadenopathy noted. Swallow reflex symmetrical. CHEST: Shows normal on inspection. Breath sounds are clear bilaterally. HEART: Shows S1, S2 clear. No murmurs auscultated. ABDOMEN: Soft, nontender, nondistended. No palpable organomegaly is noted. No rebound or guarding demonstrated. BACK: Shows spine grossly in the midline, normal-appearing cervical lordotic curvature, thoracic kyphotic curvature slightly exaggerated and some flattening of lumbar lordotic curvature. EXTREMITIES: The patient's upper extremities show deep tendon reflexes at 2+ in the biceps, triceps tendons. Motor exam is strong with advertising solicitor strength rated at 5/5 as is biceps and triceps flexion and equal. The patient's left shoulder shows some moderate tenderness even with passive motion and abduction of the shoulder past 45 degrees. This is true with reaching forward as well as posteriorly with some moderate tenderness described in the posterior and middle aspect of the shoulder itself. No specific tenderness over the deltoid musculature. No crepitus, no ratcheting with rotation and motion. The patient has difficulty reaching above his head with his left hand secondary to pain as well. Right side shows full range of motion without significant pain or difficulty. Peripheral pulses are 2+ in radial distribution. No peripheral edema is noted bilaterally. Motor exam is strong with advertising solicitor strength rated at 5/5 as is biceps and triceps flexion. DISCUSSION: Options were discussed with the patient. The patient's old chart was reviewed as his current medication regimen updated. Current review of systems updated today as well. We will proceed with a left intra-articular shoulder joint injection using C-arm fluoroscopic guidance. Risks were again discussed including, but not limited to bleeding, infection, possibility of intravascular injection sequelae, spread of local anesthetic and numbness, side effects of steroid medication and poor results regarding pain control. The patient understands and wished to proceed. The patient will return to clinic in approximately 6 weeks for followup, was counseled on return appointment, activity level and side effects to be aware of. DIAGNOSIS: Left shoulder joint pain with primary osteoarthritis of left shoulder joint. PROCEDURE: Left intra-articular shoulder joint injection at glenohumeral joint under C-arm fluoroscopic guidance under sterile prep and drape using local anesthetic. MEDICATION INJECTED: A total of 80 mg of Depo-Medrol plus 3 mL of 0.25% bupivacaine and 1.5 mL of contrast. CONDITION AT DISCHARGE: Stable. The patient tolerated procedure well, had no complications. TIFFANIE MARTINEZ MD DR: MARVEL/yany JOB#: [id number] / [id number]
== END | disposition home or self-care (01) ==
LOC: PNCL 13:59
PROVIDERS: ATTEND Anesthesiology
DX: M19.012 Primary osteoarthritis, left shoulder (principal); M50.120 Mid-cervical disc disorder, unspecified level; M51.16 Intervertebral disc disorders with radiculopathy, lumbar region; Z98.890 Other specified postprocedural states; Z88.8 Allergy status to other drugs, medicaments and biological substances; Z91.048 Other nonmedicinal substance allergy status
CPT/HCPCS: 20610; 77002; J1040; J3490; Q9965

== ENCOUNTER → 2019-09-28 | Outpatient (CLI) | payer MEDICARE ==
[2015-09-07 17:17] VITALS: BP 175/96
[~2019-09-28] MED LIST changes: -BUPIVACAINE MPF 0.25% 10 ML VIAL. ONE; -IOHEXOL 180 MG/ML 10 ML VIAL. ONE; -methylPREDNISolone ACETATE 80 MG/ML VIAL. ONE
--- NOTE | 2019-09-28 14:56 | PAIN ---
DATE OF SERVICE: 09/28/2019 PROGRESS NOTE FOR PAIN CLINIC DIAGNOSES: 1. Cervical radiculopathy with cervical degenerative disk disease and cervical spinal stenosis. 2. Lumbar radiculopathy with lumbar degenerative disk disease. 3. Left shoulder joint pain with osteoarthritis. HISTORY OF PRESENT ILLNESS: The patient is a 54-year-old male who returns for followup status post left shoulder joint injection. The patient reports about 100% improvement with left shoulder pain and is very pleased with his progress, is doing very well, increased activity with the left shoulder, sleeping well at night. His main complaint is neck and upper extremities as well as his mid and low back pain. The patient reports that pain is at 10 on a scale of 10 at its worst over the past week, 8-9 on average and 7 at its least. Hydrocodone he has been taking is becoming less effective by his report. The patient reports the pain is aching, sharp, shooting across the shoulders and into the upper extremities as well as stabbing in the low back into the lower extremities. The patient reports it is becoming more constant, radiating, worse with walking, standing, changing positions, awakens him from sleep about every 6 hours although he has been able to increase his household activities with his left shoulder. The pain in the neck and the low back is more significant. The patient reports no new motor or sensory deficits, no new bowel or bladder incontinence, no side effects with medication. PHYSICAL EXAMINATION: VITAL SIGNS: The patient's blood pressure 160/101, pulse 96, respirations 16, temperature 98.5 degrees Fahrenheit and weight is 192 pounds. GENERAL: The patient is awake, alert, oriented, appropriate, very pleasant demeanor. HEENT: Shows normocephalic, atraumatic. Extraocular movements are intact and symmetrical. Oral cavity: Mucous membranes moist and pink. Dentition is intact. NECK: Shows anterior throat supple without palpable lymphadenopathy noted. Swallow reflex symmetrical. CHEST: Shows normal on inspection. Breath sounds are clear bilaterally. HEART: Shows S1, S2 clear. No murmurs auscultated. ABDOMEN: Soft, nontender, nondistended. No palpable organomegaly is noted. No rebound or guarding demonstrated. BACK: Shows spine grossly in the midline, normal-appearing cervical lordotic curvature and thoracic kyphotic curvature. The patient's cervical paraspinous muscle shows symmetrical on inspection, with palpation shows some moderate tenderness diffusely throughout the middle and lower distribution of paraspinous muscles in the superior, medial and lateral trapezius, but diffusely and symmetrical. The patient has full rotational motion of cervical spine, both laterally as well as extension and flexion without significant difficulty with cervical spine. The patient's lumbar spine shows midline with paraspinous musculature symmetrical on inspection, on palpation shows some moderate tenderness in the middle, upper and lower distribution of paraspinous muscles bilaterally diffusely. No specific trigger points, no specific radiation. The patient has good rotational motion of lumbar spine, both laterally as well as extension and flexion bilaterally without significant increase in pain. EXTREMITIES: The patient's upper extremities show deep tendon reflexes 2+ in the biceps and triceps tendons. Motor exam is strong with media law faculty member strength rated at 5/5 as is bicep and tricep flexion. The patient's left shoulder shows full range of motion, good shoulder shrug without loss of strength on resistance bilaterally. Lower extremities show deep tendon reflexes 1+ in the patellar and tendo calcaneus tendons. Motor exam is strong with 5/5 dorsiflexion, extension, quadriceps and hamstring flexion and symmetrical. Peripheral pulses are 1+ posterior tibial, 2+ radial. No peripheral edema is noted in the upper or lower extremities. IMPRESSION: Options were discussed with the patient. The patient's old chart was reviewed as his current medication regimen updated. Current review of systems updated today as well. We will refill the patient's medication. We will change the hydrocodone to oxycodone 10 mg. The patient was given instruction as well as side effects to be aware of. Also Flexeril 10 mg. The patient has had appropriate K-TRACS reporting as well as appropriate urinalysis to date. We will make this a 2-month prescription refill. He has been on these medications in the past with good tolerance and without side effects. The patient was cautioned as to side effects as well as instructions with each of the medications and will follow up in approximately 2 months or sooner as necessary. TIFFANIE MARTINEZ MD DR: MARVEL/yany JOB#: [id number] / [id number]
== END | disposition home or self-care (01) ==
LOC: PNCL 09:49
PROVIDERS: ATTEND Anesthesiology
DX: M51.16 Intervertebral disc disorders with radiculopathy, lumbar region (principal); M50.10 Cervical disc disorder with radiculopathy, unspecified cervical region; M19.012 Primary osteoarthritis, left shoulder; M48.02 Spinal stenosis, cervical region
CPT/HCPCS: G0463

== ENCOUNTER → 2019-12-21 | Outpatient (CLI) | payer MEDICARE ==
[2015-09-07 17:17] VITALS: BP 175/96
--- NOTE | 2019-12-21 11:49 | PAIN ---
DATE OF SERVICE: 12/21/2019 PROGRESS NOTE FOR PAIN CLINIC DIAGNOSES: 1. Cervical radiculopathy with cervical degenerative disk disease and cervical spinal stenosis. 2. Lumbar radiculopathy with lumbar degenerative disk disease. 3. Left shoulder joint pain with primary osteoarthritis. HISTORY OF PRESENT ILLNESS: The patient is a 54-year-old male who returns for followup status post medication management with both Flexeril and oxycodone. The patient reports doing very well, also had an injection in the left shoulder in July of this year, which did very well with near 100% improvement. The patient's shoulders is doing much better, still has some pain in the neck and base of the shoulders as well as the midback and low back and the right knee. The patient reports his pain in the knee is a 10 on a scale of 10 at its worst over the past week. Otherwise, his pain is a 9 on a scale of average, 7 at its least and is a 7 today. The patient reports it is aching type, shooting pain in the low back, neck, shoulders, upper back as well, radiating in the lower extremities, especially on the right knee with some tingling, burning, cramping at times in the shoulders and arms, but much better than in the left shoulder itself. The patient reports no new motor or sensory deficits, no new bowel or bladder incontinence or other complaints. PHYSICAL EXAMINATION: VITAL SIGNS: The patient's blood pressure is 144/97, pulse 90, respirations 16, temperature 98.2 degrees Fahrenheit, weight is 188 pounds. GENERAL: The patient is awake, alert, oriented, appropriate, very pleasant demeanor. HEENT: Shows normocephalic, atraumatic. Extraocular movements are intact and symmetrical. Oral cavity: Mucous membranes moist and pink. Dentition is intact. NECK: Shows anterior throat supple without palpable lymphadenopathy noted. CHEST: Shows normal on inspection. Breath sounds are clear bilaterally. No rales, rhonchi or wheezes auscultated. HEART: Shows S1, S2 clear. No murmurs auscultated. ABDOMEN: Soft, nontender, nondistended. No palpable organomegaly is noted. No rebound or guarding demonstrated. BACK: Shows spine grossly in the midline. Normal appearing thoracic kyphosis. There is minor flattening of lumbar lordotic curvature and normal cervical lordosis with palpation shows some moderate tenderness in the cervical paraspinous musculature and the middle and lower distribution of the paraspinous muscles, but only diffusely without significant radiation. The patient does show good rotational motion of cervical spine laterally as well as extension and flexion without significant difficulty. Thoracic paraspinous muscle shows some mild tenderness diffusely, but without trigger points. Lumbar paraspinous muscle shows some moderate tenderness bilaterally throughout the upper, middle and lower distribution of paraspinous muscles, again only diffusely without significant radiation. The patient has good rotational motion of lumbar spine, both laterally as well as extension and flexion without significant difficulty. EXTREMITIES: The patient's extremities show upper extremity deep tendon reflexes 2+ in the biceps, triceps tendons. Motor exam is strong with composition floor setter strength rated at 5/5. Peripheral pulses are 2+ bilaterally. Lower extremities show deep tendon reflexes, 1+ patellar and tendo calcaneus tendons. Motor exam is strong with 5/5 dorsiflexion, extension, quadriceps and hamstring flexion symmetrical. The patient's right knee shows some moderate tenderness with palpation in the posterior popliteal region, but without, masses without swelling intact and compared to the left patella shows good mobility without significant tenderness with mild tenderness in the medial collateral ligament on the right only. IMPRESSION AND DISCUSSION: Options were discussed with the patient. The patient's old chart was reviewed as his current medication regimen updated. Current review of systems updated today as well. We will refill the patient's medication, both Percocet and Flexeril. The patient was given instruction as well as side effects to be aware of each of the medications. The patient had appropriate K-TRACS reporting and appropriate urinalysis to date has been on very stable regimen with overall about the 75% improvement with medications by without side effects. The patient was given a 2-month prescription for each medication again with instructions, side effects to be aware of discussed. The patient will follow up in approximately 2 months or sooner as necessary. TIFFANIE MARTINEZ MD DR: MARVEL/yany JOB#: [id number] / [id number]
== END ==
LOC: PNCL 09:57
PROVIDERS: ATTEND Anesthesiology
DX: M51.16 Intervertebral disc disorders with radiculopathy, lumbar region (principal); M50.10 Cervical disc disorder with radiculopathy, unspecified cervical region; M48.02 Spinal stenosis, cervical region; M19.012 Primary osteoarthritis, left shoulder
CPT/HCPCS: G0463

== ENCOUNTER → 2020-02-15 | Outpatient (CLI) | payer MEDICARE ==
[2015-09-07 17:17] VITALS: BP 175/96
--- NOTE | 2020-02-15 12:07 | PDOC ---
Progress Note - Pain Clinic Date of Service: DOS: DATE: 02/15/20 TIME: 11:58 Diagnosis: Dx: Cervical radiculopathy with cervical degenerative disc disease and cervical spinal stenosis. Lumbar radiculopathy with lumbar degenerative disc disease. Left shoulder joint pain with primary osteoarthritis. History or Present Illness: HPI: Mr. Priest, a 54-year-old male returns for follow-up status post medication management with both oxycodone and Flexeril patient reports that he is doing fairly well at this point a very stable regimen with the medications with approximately 75% improvement overall with the medications himself and without side effects. Patient reports doing fairly well with his left shoulder which we have done an intra-articular injection on in July of this year until about a week ago when he was lifting a bag of cement which strained the shoulder to some extent he has increased pain in this but is getting better with some stretching and relaxation and resting the shoulder. Patient reports still significant pain in the base the neck and shoulders as well as the upper back and especially the low back after lifting the bag of cement but is getting better we is wearing his supportive brace today on his lumbar spine reports he has been taking it easy with getting some pressure off of his back and his feet will seems to be helping. Reports pain is not generally awaken him from sleep at night rates the pain is a 10 on a scale of 10 is worse over the past week 8-9 on average of 7-8 at its least and is a 7 today. Physical Exam: VS: Blood pressure is 161/100 pulse 94 respirations 20 temperature 98.3 F weight is 1 8 8 pounds PE: PHYSICAL EXAMINATION: GENERAL: The patient is awake, alert, oriented, appropriate, very pleasant demeanor HEENT: Shows normocephalic, atraumatic. Extraocular movements are intact and symmetrical. Oral cavity: Mucous membranes moist and pink. Dentition is intact. NECK: Shows anterior throat supple without palpable lymphadenopathy noted. Sw allow reflex symmetrical. CHEST: Shows normal on inspection. Breath sounds are clear bilaterally. HEART: Shows S1, S2 clear. No murmurs auscultated. ABDOMEN: Soft, nontender, nondistended. No palpable organomegaly is noted. No rebound or guarding demonstrated. BACK: Shows spine grossly in the midline. Normal-appearing cervical lordotic curvature. Cervical paraspinous muscles show symmetrical on inspection with palpation some moderate tenderness diffusely in the inferior aspect of the cervical paraspinous musculature bilaterally but only diffusely without significant radiation. Patient has good rotation motion cervical spine both extension forward flexion right and left lateral with only minor discomfort. There is slightly increased thoracic kyphosis, some minor flattening of the lumbar lordotic curvature. Patient wearing lumbar support brace on initial inspection. Lumbar paraspinous muscles show symmetrical on inspection, on palpation shows some moderate tenderness diffusely throughout the upper, middle and lower distribution of the paraspinous muscles bilaterally and also into the lower thoracic paraspinous musculature, firm and tender, but without specific trigger points, without radiation of pain. The patient has good rotational motion of the lumbar spine, both laterally as well as extension and flexion without significant difficulty. No tenderness over the spinous processes, sacrum or sacroiliac regions. EXTREMITIES: Lower extremities show deep tendon reflexes [1+] in the patellar and tendo calcaneus tendons. Motor exam is 5 on a scale of 5 with right dorsiflexion, extension, quadriceps and hamstring flexion and 5/5 on the left. Peripheral pulses are 1+ posterior tibial. No peripheral edema is noted bilaterally. Lower extremities are warm and dry to touch, equal in color and appearance. The patient is able to stand stand on his toes without significant difficulty walks with a slight widened gait but without assistive devices.. SKIN: Shows warm and dry, good turgor. No edema. No sores, rashes or bruising throughout. Options were discussed with the patient. The patient's old chart was reviewed and current medication regimen updated, and review of systems updated. Procedure: Procedure: None Medication Injected: Med Injected: None Condition at Discharge: Condition at Discharge: Options were discussed with the patient patient's old chart was reviewed his his current medication regimen. Current review of systems updated today as well and we will refill patient's medication Percocet and Flexeril for a 2-month. Patient has had appropriate K- trax report as well as appropriate urinalyses to date we will get a urinalysis today as part of routine screening patient will be given a 2-month prescription with side effects and instructions for the medication to be aware of, patient will follow-up in roughly 2 months or sooner as necessary. TIFFANIE MARTINEZ MD Feb 15, 2020 12:07
== END | disposition home or self-care (01) ==
LOC: PNCL 11:27
PROVIDERS: ATTEND Anesthesiology
DX: M51.16 Intervertebral disc disorders with radiculopathy, lumbar region (principal); M48.02 Spinal stenosis, cervical region; M19.012 Primary osteoarthritis, left shoulder; M50.10 Cervical disc disorder with radiculopathy, unspecified cervical region; Z88.8 Allergy status to other drugs, medicaments and biological substances; Z79.899 Other long term (current) drug therapy
CPT/HCPCS: G0463

== ENCOUNTER → 2020-04-11 | Outpatient (CLI) | payer MEDICARE ==
[2015-09-07 17:17] VITALS: BP 175/96
--- NOTE | 2020-04-11 11:57 | PDOC ---
Progress Note - Pain Clinic Date of Service: DOS: DATE: 04/11/20 TIME: 11:52 Diagnosis: Dx: Cervical radiculopathy with cervical degenerative disc disease and cervical spinal stenosis Lumbar to radiculopathy with lumbar degenerative disc disease Left shoulder joint pain with osteoarthritis History or Present Illness: HPI: 55-year-old male returns follow-up status post medication management with both oxycodone and Flexeril. Patient reports he is doing fairly well but he is beginning to have less and less improvement with the oxycodone with time. Patient reports no side effects with medication except for occasional constipation which he treats with increased fluid hydration and [id number] laxatives with good success. Patient reports pain is a 10 on scale 10 is worse over the past week 8 on average 7 is less than 8 today. Patient describes the pain as aching and sharp in the base the neck and shoulder as well as the mid and upper and low back tingling and cramping in the upper extremities with some stabbing pain in the mid back and upper back and radiating pain bilaterally. Patient reports no new motor or sensory deficits no new bowel or bladder incontinence and again no other side effects with his medications. Physical Exam: VS: Blood pressure is 136/93 pulse 93 respirations 18 temperature is 98.7 F height is 5 feet 5 inches weight is 187 pounds PE: PHYSICAL EXAMINATION: GENERAL: The patient is awake, alert, oriented, appropriate, very pleasant demeanor HEENT: Shows normocephalic, atraumatic. Extraocular movements are intact and symmetrical. Oral cavity: Mucous membranes moist and pink. NECK: Shows anterior throat supple without palpable lymphadenopathy noted. Swallow reflex symmetrical. CHEST: Shows normal on inspection. Breath sounds are clear bilaterally, no rales rhonchi or wheezes. HEART: Shows S1, S2 clear. No murmurs auscultated. ABDOMEN: Soft, nontender, nondistended, obese. No palpable organomegaly is noted. No rebound or guarding demonstrated. BACK: Shows spine grossly in the midline. Normal-appearing cervical lordotic curvature patient shows good rotational motion of cervical spine with some moderate tenderness with extension and forward flexion but good right left lateral rotation past 45 degrees closer to 90 degrees without significant increase in pain. Patient's posterior cervical musculature is symmetrical inspection with palpation some moderate tenderness diffusely but without trigger points or radiation. There is slightly increased thoracic kyphosis, some minor flattening of the lumbar lordotic curvature. Lumbar paraspinous muscles show symmetrical on inspection, on palpation shows some moderate tenderness diffusely throughout the upper, middle and lower distribution of the paraspinous muscles bilaterally and also into the lower thoracic paraspinous musculature, firm and tender, but without specific trigger points, without radiation of pain. The patient has good rotational motion of the lumbar spine, both laterally as well as extension and flexion without significant difficulty. No tenderness over the spinous processes, sacrum or sacroiliac regions. EXTREMITIES: Lower extremities show deep tendon reflexes 1+ in the patellar and tendo calcaneus tendons. Motor exam is 5 on a scale of 5 with right dorsiflexion, extension, quadriceps and hamstring flexion and 5/5 on the left. Peripheral pulses are 1+ posterior tibial. No peripheral edema is noted bilaterally. Lower extremities are warm and dry to touch, equal in color and appearance. Upper extremity showed deep tendon reflexes 2+ in the bicep and triceps tendons are equal motor exam is strong with marine engine mechanic strength rated 5 out of 5 as is bicep and tricep flexion. Peripheral pulses are 2+ radial no peripheral edema is noted to the upper extremities. SKIN: Shows warm and dry, good turgor. No edema. No sores, rashes or bruising throughout. Procedure: Procedure: Options discussed with the patient. Patient will chart was reviewed his current medication regimen updated current review of systems updated today as well. We will refill patient's medication and change the Percocet to hydrocodone 10 mg as he is done very well with this and he seems to be developing some physiologic tolerance to the oxycodone. Patient is at appropriate contract reporting as well as appropriate urinalyses to date and we will refill this for a 2-month period. Patient is given instructions all side effects were each of the medications will follow-up in approximately 2 months or sooner as necessary. Medication Injected: Med Injected: None Condition at Discharge: Condition at Discharge: Condition at discharge stable TIFFANIE MARTINEZ MD Apr 11, 2020 11:57
== END | disposition home or self-care (01) ==
LOC: PNCL 11:23
PROVIDERS: ATTEND Anesthesiology
DX: M51.16 Intervertebral disc disorders with radiculopathy, lumbar region (principal); M50.10 Cervical disc disorder with radiculopathy, unspecified cervical region; M48.02 Spinal stenosis, cervical region; M19.012 Primary osteoarthritis, left shoulder; Z88.8 Allergy status to other drugs, medicaments and biological substances; Z79.899 Other long term (current) drug therapy
CPT/HCPCS: G0463

== ENCOUNTER → 2020-06-06 | Outpatient (CLI) | payer MEDICARE ==
[2015-09-07 17:17] VITALS: BP 175/96
[~2020-06-06] MED LIST changes: +MELO15TA23 PO
--- NOTE | 2020-06-06 12:46 | PDOC ---
Progress Note - Pain Clinic Date of Service: DOS: DATE: 06/06/20 TIME: 12:42 Diagnosis: Dx: Cervical radiculopathy with cervical degenerative disease and cervical spinal stenosis Lumbar radiculopathy with lumbar degenerative disc disease Left shoulder joint pain with osteoarthritis History or Present Illness: HPI: 55-year-old male returns follow-up status post medication management with hydrocodone and Flexeril and meloxicam. Patient reports approximately 75% improvement with the medications without significant side effects, except for occasional constipation which she controls well with hydration. Patient ports he doing fairly well still has some pain in the base of the neck and shoulders as well as the upper back and mid back described as tingling and cramping at times stabbing aching dull and tight sometimes radiating constant in the shoulders and upper extremity but generally positional and or exercise related. Patient reports he is sleeping well at night generally does not awaken him from sleep at night he was increasing his activities as well as household duties rates his pain as a 9 or 10 on scale 10 is worst over the past week 7-[address] and a 5 its least is a 7 today. Patient reports no new motor or sensory deficits no new bowel or bladder incontinence or other complaints. Physical Exam: VS: Blood pressure is 136/89 pulse 103 respirations 16 temperature 98.8 F weight is 189 pounds PE: PHYSICAL EXAMINATION: GENERAL: The patient is awake, alert, oriented, appropriate, very pleasant demeanor HEENT: Shows normocephalic, atraumatic. Extraocular movements are intact and symmetrical. NECK: Shows anterior throat supple without palpable lymphadenopathy noted. CHEST: Shows normal on inspection. Breath sounds are clear bilaterally. HEART: Shows S1, S2 clear. No murmurs auscultated. ABDOMEN: Soft, nontender, nondistended, obese. No palpable organomegaly is noted. No rebound or guarding demonstrated. BACK: Shows spine grossly in the midline. Normal-appearing cervical lordotic curvature. There is slightly increased thoracic kyphosis, some minor flattening of the lumbar lordotic curvature. Lumbar paraspinous muscles show symmetrical on inspection, on palpation shows some moderate tenderness diffusely throughout the upper, middle and lower distribution of the paraspinous muscles bilaterally and also into the lower thoracic paraspinous musculature, firm and tender, without specific trigger points, without radiation of pain. The patient has good rotational motion of the lumbar spine, both laterally as well as extension and flexion without significant difficulty. No tenderness over the spinous processes, sacrum or sacroiliac regions. Patient cervical spine shows good rotation motion both laterally greater than 45 degrees right and left as well as full extension full forward flexion without significant difficulty paraspinous muscles show symmetrical on inspection on palpation some moderate tenderness diffusely in the middle and lower distribution the paraspinous muscles of the cervical distribution without asymmetry without atrophy hypertrophy and without trigger points. EXTREMITIES: Lower extremities show deep tendon reflexes 1+ in the patellar and tendo calcaneus tendons. Motor exam is 5 on a scale of 5 with right dorsiflexion, extension, quadriceps and hamstring flexion and 5/5 on the left. Peripheral pulses are 1+ posterior tibial. No peripheral edema is noted bilaterally. Lower extremities are warm and dry to touch, equal in color and appearance. Upper extremities show deep tendon reflexes 2+ in the bicep and triceps tendons motor exam is strong with surface plate finisher strength rated 5 out of 5 as is bicep and tricep flexion peripheral pulses are 2+ radial no peripheral edema is noted. Shoulder shrug is strong and intact without loss of strength on resistance. SKIN: Shows warm and dry, good turgor. No edema. No sores, rashes or bruising throughout. Procedure: Procedure: Options were discussed with the patient. Patient's old chart was reviewed his his current medication regimen updated current review of systems updated today as well. We will refill patient's medication: hydrocodone and Flexeril and meloxicam, for a 2-month period. Patient has had appropriate K tracts reporting as well as appropriate urinalyses to date and we will make this a 2-month refill with instructions side effects aware of discussed with each of the medications. Patient return to clinic in approximately 2 months or sooner if necessary. Medication Injected: Med Injected: None Condition at Discharge: Condition at Discharge: Condition at discharge is stable. TIFFANIE MARTINEZ MD Jun 06, 2020 12:46
== END | disposition home or self-care (01) ==
LOC: PNCL 11:18
PROVIDERS: ATTEND Anesthesiology
DX: M50.10 Cervical disc disorder with radiculopathy, unspecified cervical region (principal); M51.16 Intervertebral disc disorders with radiculopathy, lumbar region; M19.012 Primary osteoarthritis, left shoulder; Z98.890 Other specified postprocedural states; Z88.1 Allergy status to other antibiotic agents; Z88.8 Allergy status to other drugs, medicaments and biological substances; Z91.048 Other nonmedicinal substance allergy status
CPT/HCPCS: G0463

== ENCOUNTER → 2020-08-22 | Outpatient (CLI) | payer BC ==
[2015-09-07 17:17] VITALS: BP 175/96
[~2020-08-22] MED LIST changes: +LISI10TA16 PO; -LISI10TA2 PO
--- NOTE | 2020-08-22 11:52 | PDOC ---
Progress Note - Pain Clinic Date of Service: DOS: DATE: 08/22/20 TIME: 11:48 Diagnosis: Dx: Cervical radiculopathy with cervical degenerative disease and cervical spinal stenosis Lumbar radiculopathy with lumbar degenerative disc disease Left shoulder joint pain with osteoarthritis History or Present Illness: HPI: 55-year-old male returns to follow-up status post medication management with hydrocodone and Flexeril as well as meloxicam. Patient reports he has been doing very well general very stable regimen 70% improvement overall with medications and no side effects. Patient reports he is still having some pain in the base the neck and shoulders specially the left shoulder but only with repetitive motion with increased activity which she has been controlling fairly well over the past few months. Patient reports no new motor or sensory deficits no new side effects with the medications describes the pain in the neck and shoulders as well as in the mid and upper back and low back is aching and dull tight at times in the left shoulder burning and cramping in the left shoulder as well as the base of the neck and some stabbing in the low back as well with increased activity with some radiating pain across the shoulders and into the low back also patient rates his pain is a 10 on scale 10 is worse over the past week 7-8 on average 5-6 at its least and is a 7 today. Patient reports sleeping fairly well at night and the medication is helping him sleep significantly especially the Flexeril. Patient reports no new motor or sensory deficits no bowel or bladder incontinence or other complaints. Physical Exam: VS: Pressure is 138/88 pulse 101 respirations 18 temperature 99.5 F height 5 feet 5 inches weight 188 pounds PE: PHYSICAL EXAMINATION: GENERAL: The patient is awake, alert, oriented, appropriate, very pleasant demeanor HEENT: Shows normocephalic, atraumatic. Extraocular movements are intact and symmetrical. NECK: Shows anterior throat supple without palpable lymphadenopathy noted. Swallow reflex symmetrical. CHEST: Shows normal on inspection. Breath sounds are clear bilaterally, distant but no rales or rhonchi auscultated. HEART: Shows S1, S2 clear. No murmurs auscultated. ABDOMEN: Soft, nontender, nondistended, obese. No palpable organomegaly is noted. BACK: Shows spine grossly in the midline. Normal-appearing cervical lordotic curvature. Cervical paraspinous muscles show symmetrical on inspection, on palpation shows some moderate tenderness diffusely in the inferior aspect of the cervical paraspinous musculature bilaterally but without trigger points without radiation. Patient shows good rotation motion cervical spine both laterally as well as extension flexion without significant increase in pain. There is slight ly increased thoracic kyphosis, some minor flattening of the lumbar lordotic curvature. Lumbar paraspinous muscles show symmetrical on inspection, on palpation shows some moderate tenderness diffusely throughout the upper, middle and lower distribution of the paraspinous muscles without specific trigger points, without radiation of pain. The patient has good rotational motion of the lumbar spine, both laterally as well as extension and flexion without significant difficulty. No tenderness over the spinous processes, sacrum or sacroiliac regions. EXTREMITIES: Lower extremities show deep tendon reflexes 1+ in the patellar and tendo calcaneus tendons. Motor exam is 5 on a scale of 5 with right dorsiflexion, extension, quadriceps and hamstring flexion and 5/5 on the left. Peripheral pulses are 1+ posterior tibial. No peripheral edema is noted bilaterally. Lower extremities are warm and dry to touch, equal in color and appearance. Upper extremities show deep tendon reflexes 2+ in the biceps and triceps tendons motor exam strong with executive team leader strength rated 5 out of 5 as is bicep and tricep flexion bilaterally. Peripheral pulses are 2+ radial, no peripheral edema is noted bilaterally. SKIN: Shows warm and dry, good turgor. No edema. No sores, rashes or bruising throughout. Procedure: Procedure: Options were discussed with the patient. Patient will chart reviews his current medication regimen updated, current review of systems updated today as well. We will refill patient's medication has had a very consistent and a appropriate K tracts reporting as well as appropriate urinalyses to date. We will make this for 2-month refill. Patient also have urinalysis obtained today as a part of routine screening and new narcotic contract signed which patient was given a copy of as well. Patient was given instructions well side effects aware of each of the medications will follow-up approxi-2 months or sooner if necessary. Medication Injected: Med Injected: None Condition at Discharge: Condition at Discharge: Condition at discharge is stable. TIFFANIE MARTINEZ MD Aug 22, 2020 11:52
== END | disposition home or self-care (01) ==
LOC: PNCL 11:00
PROVIDERS: ATTEND Anesthesiology
DX: M50.10 Cervical disc disorder with radiculopathy, unspecified cervical region (principal); M48.02 Spinal stenosis, cervical region; M51.16 Intervertebral disc disorders with radiculopathy, lumbar region; M19.012 Primary osteoarthritis, left shoulder; F17.210 Nicotine dependence, cigarettes, uncomplicated; Z79.899 Other long term (current) drug therapy; Z98.890 Other specified postprocedural states; Z72.89 Other problems related to lifestyle
CPT/HCPCS: G0463

== ENCOUNTER → 2020-10-17 | Outpatient (CLI) | payer BC ==
[2015-09-07 17:17] VITALS: BP 175/96
--- NOTE | 2020-10-17 12:04 | PDOC ---
Progress Note - Pain Clinic Date of Service: DOS: DATE: 10/17/20 TIME: 12:00 Diagnosis: Dx: Cervical radiculopathy with cervical degenerative disc disease and cervical spinal stenosis Lumbar radiculopathy with lumbar degenerative disease and lumbar, lumbosacral spondylosis Left shoulder joint pain with osteoarthritis History or Present Illness: HPI: 55-year-old male returns follow-up status post left shoulder joint injection as well as cervical epidurals or injections in lumbar epidurals or injections in the past also managed with medication management with hydrocodone as well as Flexeril and meloxicam. Patient reports the combination of the medications about 70 to 75% improvement with the pain without significant side effects but still having significant pain in the low back itself. Patient reports he was lifting some items over the past week or so with increased pain in the low back worse with extension the lumbar spine lifting and bending and stooping patient reports it is a tingling pain the low back is cramping and stabbing at times does not radiate to the lower extremities patient ports aching and sharp and shooting across the low back also some pain in the base the neck and shoulders patient reports it can be severe at times on and off in intensity patient reports is waking her from sleep occasionally but not every night patient reports the pain is a 9-10 on scale 10 is worse over the past week 7-8 on average and a 7 at its least is an 8 today. Patient reports no new motor or sensory deficits no bowel or bladder incontinence. Patient continues taking meloxicam which does decrease the pain although the hydrocodone last longer. Physical Exam: VS: Blood pressure is 131/84 pulse 99 respirations 18 temperature is 98.9 F weight is 191 pounds PE: PHYSICAL EXAMINATION: GENERAL: The patient is awake, alert, oriented, appropriate, very pleasant d emeanor HEENT: Shows normocephalic, atraumatic. Extraocular movements are intact and symmetrical. Oral cavity: Mucous membranes moist and pink. Dentition is intact. NECK: Shows anterior throat supple without palpable lymphadenopathy noted. Swallow reflex symmetrical. CHEST: Shows normal on inspection. Breath sounds are clear bilaterally, distant but no rales or rhonchi. HEART: Shows S1, S2 clear. No murmurs auscultated. ABDOMEN: Soft, nontender, nondistended, obese. No palpable organomegaly is noted. No rebound or guarding demonstrated. BACK: Shows spine grossly in the midline. Normal-appearing cervical lordotic curvature. There is slightly increased thoracic kyphosis, some minor flattening of the lumbar lordotic curvature. Lumbar paraspinous muscles show symmetrical on inspection, on palpation shows some moderate tenderness diffusely throughout the upper, middle and lower distribution of the paraspinous muscles without specific trigger points, without radiation of pain. The patient has good rotat ional motion of the lumbar spine, with significant tenderness with right and left lateral rotation past 10 degrees especially with extension greater than 10 degrees with very significant tenderness in the low back itself without radiation. Patient has forward flexion at 45 degrees without significant increase in pain. EXTREMITIES: Lower extremities show deep tendon reflexes 1+ in the patellar and tendo calcaneus tendons. Motor exam is 4 on a scale of 5 with right dorsiflexion, extension, quadriceps and hamstring flexion and 4/5 on the left. Peripheral pulses are 1+ posterior tibial. No peripheral edema is noted bilaterally. Lower extremities are warm and dry to touch, equal in color and appearance. SKIN: Shows warm and dry, good turgor. No edema. No sores, rashes or bruising throughout. Procedure: Procedure: Options were discussed with the patient. Patient chart reviews his current medication regimen updated current review of systems updated today as well. We will proceed with preauthorization for bilateral lumbar facet medial branch blocks at the L4-5 and L5-S1 levels. Also patient's medication will be refilled hydrocodone as well as meloxicam and Flexeril with instructions side effects beware of each of the medications. Patient has had appropriate K tracks report as well as appropriate urinalyses to date limits refill for 2-month period. Patient was given instruction as well as side effects beware of each of the medications will follow-up as scheduled for bilateral L4-5 and L5-S1 facet medial branch blocks. Patient will continue with stretching strength exercises in the meantime as well as medication as discussed. Medication Injected: Med Injected: None Condition at Discharge: Condition at Discharge: Condition at discharge stable. TIFFANIE MARTINEZ MD Oct 17, 2020 12:04
== END | disposition home or self-care (01) ==
LOC: PNCL 11:34
PROVIDERS: ATTEND Anesthesiology
DX: M50.10 Cervical disc disorder with radiculopathy, unspecified cervical region (principal); M48.02 Spinal stenosis, cervical region; M51.16 Intervertebral disc disorders with radiculopathy, lumbar region; M19.012 Primary osteoarthritis, left shoulder; M47.817 Spondylosis without myelopathy or radiculopathy, lumbosacral region; F17.210 Nicotine dependence, cigarettes, uncomplicated; Z72.89 Other problems related to lifestyle; Z98.890 Other specified postprocedural states; Z79.899 Other long term (current) drug therapy; Z88.8 Allergy status to other drugs, medicaments and biological substances
CPT/HCPCS: G0463

== ENCOUNTER → 2020-12-13 | Outpatient (CLI) | payer BC ==
[2015-09-07 17:17] VITALS: BP 175/96
--- NOTE | 2020-12-13 12:40 | PDOC ---
Progress Note - Pain Clinic Date of Service: DOS: DATE: 12/13/20 TIME: 12:36 Diagnosis: Dx: Cervical radiculopathy with cervical spinal stenosis cervical degenerative disc disease Lumbar radiculopathy lumbar degenerative disc disease Lumbar and lumbosacral spondylosis Left shoulder joint pain with osteoarthritis History or Present Illness: HPI: 55-year-old male returns for follow-up status post medication management with hydrocodone and Flexeril also meloxicam. Patient reports doing fairly well with this been a very stable regimen about a 70 to 75% improvement without significant side effects that with the medication. Patient still complains of low back pain in the bilateral aspect of the lumbar spine without radiation to the lower extremities. Patient reports pain base the neck and shoulders as well but fairly well controlled with medication has low back pain however is not fairly well controlled. Patient reports is a nine on scale 10 is worse over the past week seven on average five its least is a seven today patient scribes aching and dull cramping and stabbing tingling can radiate in the shoulders neck for the low back is generally more severe and constant on and off in intensity worse with walking standing changing position especially with extension and axial loading of the lumbar spine. Patient had recent surgery on his left wrist after injury from a hammer accident and had a torn tendon which is been recently repaired. Physical Exam: VS: Blood pressure is 160/105 pulse 94 respirations 16 temperature 98.6 three Fahrenheit weight is 189 pounds PE: PHYSICAL EXAMINATION: GENERAL: The patient is awake, alert, oriented, appropriate, very pleasant demeanor HEENT: Shows normocephalic, atraumatic. Extraocular movements are intact and symmetrical. Oral cavity: Mucous membranes moist and pink. Dentition is intact. NECK: Shows anterior throat supple without palpable lymphadenopathy noted. Swallow reflex symmetrical. CHEST: Shows normal on inspection. Breath sounds are clear bilaterally, no rales rhonchi wheezes auscultated. HEART: Shows S1, S2 clear. No murmurs auscultated. ABDOMEN: Soft, nontender, nondistended, obese. No palpable organomegaly is noted. BACK: Shows spine grossly in the midline. Normal-appearing cervical lordotic curvature. There is slightly increased thoracic kyphosis, some minor flattening of the lumbar lordotic curvature. Lumbar paraspinous muscles show symmetrical on inspection, on palpation shows some moderate tenderness diffusely throughout the upper, middle and lower distribution of the paraspinous muscles without specific trigger points, without radiation of pain. The patient has good rotational motion of the lumbar spine, both laterally as well as extension and flexion without significant difficulty. No tenderness over the spinous processes, sacrum or sacroiliac regions. EXTREMITIES: Lower extremities show deep tendon reflexes one in the patellar and tendo calcaneus tendons. Motor exam is full on a scale of 5 with right dorsiflexion, extension, quadriceps and hamstring flexion and four/5 on the left. Peripheral pulses are 1+ posterior tibial. No peripheral edema is noted bilaterally. Lower extremities are warm and dry. Upper extremity show deep tendon reflexes 2+ in the bicep tricep tendons, motor exams, 5 out of 5 business center attendant strength bicep and tricep flexion. Peripheral pulses are 2+ radial on the right left side is bandaged. SKIN: Shows warm and dry, good turgor. No edema. No sores, rashes or bruising throughout. Procedure: Procedure: Options were discussed with the patient. Patient chart was reviewed his his current medication regimen updated current review of systems updated today as well. We discussed bilateral lumbar L4-5 and L5-S1 facet medial branch blocks however patient would like to wait until his left wrist is further healed and less painful prior to having any other procedures. We will refill patient's medication as he has had appropriate K tracks when as well as appropriate urinalyses to date. Patient given a 2-month prescription with instructions side effects aware of discussed each of the medications and will follow up in approximate 2 months or sooner as necessary. Medication Injected: Med Injected: None Condition at Discharge: Condition at Discharge: Condition at discharge is stable. TIFFANIE MARTINEZ MD Dec 13, 2020 12:40
== END | disposition home or self-care (01) ==
LOC: PNCL 11:38
PROVIDERS: ATTEND Anesthesiology
DX: M51.16 Intervertebral disc disorders with radiculopathy, lumbar region (principal); M50.10 Cervical disc disorder with radiculopathy, unspecified cervical region; M48.02 Spinal stenosis, cervical region; M47.27 Other spondylosis with radiculopathy, lumbosacral region; M19.012 Primary osteoarthritis, left shoulder; F17.210 Nicotine dependence, cigarettes, uncomplicated; Z79.899 Other long term (current) drug therapy; Z72.89 Other problems related to lifestyle; Z88.8 Allergy status to other drugs, medicaments and biological substances
CPT/HCPCS: G0463

== ENCOUNTER → 2021-02-07 | Outpatient (CLI) | payer BC ==
[2015-09-07 17:17] VITALS: BP 175/96
--- NOTE | 2021-02-07 12:10 | PDOC ---
Progress Note - Pain Clinic Date of Service: DOS: DATE: 02/07/21 TIME: 12:04 Diagnosis: Dx: Cervical radiculopathy with cervical spinal stenosis cervical degenerative disc disease Lumbar radiculopathy with lumbar degenerative disc disease lumbar spondylosis Left shoulder joint pain with osteoarthritis History or Present Illness: HPI: 55-year-old male returns for follow-up status post medication management with both meloxicam and Flexeril, as well as hydrocodone. Patient reports he is doing very well with his regimen has been on a very stable regimen and reducing the pain by about 75% or so most days. Patient reports his 30s with activity pace very well controlled still complains of pain base the neck and shoulders upper extremities also mid back and low back again well controlled very safe to do most activities of daily living without significant impairment. Patient rates his pain as a 9-10 on scale 10 is worse over the past week 6-7 on average 5 its least patient describes it as a 5 today. Patient scribes as aching tight and dull in the shoulders shooting in the low back cramping and stabbing in the back as well also chief complaint today of the left wrist pain he had injured his left wrist with a torn tendon this was repaired surgically and exams and difficulty with getting back to normal function he has been unable to find a physical therapy area that would accept his insurance. We discussed this further and we will make referral to the physical therapy department at [facility], for occupational therapy regarding his left wrist. Physical Exam: VS: Blood pressure is 147/100 pulse 111 respirations 18 temperature 98.6 3 Fahrenheit height is 5 feet 7 inches weight is 190 pounds PE: PHYSICAL EXAMINATION: GENERAL: The patient is awake, alert, oriented, appropriate, very pleasant in demeanor HEENT: Shows normocephalic, atraumatic. Extraocular movements are intact and symmetrical. Oral cavity: Mucous membranes moist and pink. Dentition is intact. NECK: Shows anterior throat supple without palpable lymphadenopathy noted. CHEST: Shows normal on inspection. Breath sounds are clear bilaterally, distant but no rales rhonchi or wheezes auscultated. HEART: Shows S1, S2 clear. No murmurs auscultated. ABDOMEN: Soft, nontender, nondistended, obese. No palpable organomegaly is noted. BACK: Shows spine grossly in the midline. Normal-appearing cervical lordotic curvature. Cervical paraspinous muscles show symmetrical with inspection on palpation some moderate tenderness throughout the upper middle lower distribution the paraspinous muscles bilaterally right equal to left without specific trigger points atrophy hypertrophy. Patient has full rotation motion cervical spine both laterally as well as extension and full forward flexion without significant limitation. There is slightly increased thoracic kyphosis, some minor flattening of the lumbar lordotic curvature. Lumbar paraspinous muscles show symmetrical on inspection, on palpation shows some moderate tenderness diffusely throughout the upper, middle and lower distribution of the paraspinous muscles without specific trigger points, without radiation of pain. The patient has good rotational motion of the lumbar spine, both laterally as well as extension and flexion without significant difficulty. EXTREMITIES: Lower extremities show deep tendon reflexes 1+ in the patellar and tendo calcaneus tendons. Motor exam is 4 on a scale of 5 with right dorsiflexion, extension, quadriceps and hamstring flexion and 4/5 on the left. Peripheral pulses are 1+ posterior tibial. No peripheral edema is noted bilaterally. Lower extremities are warm and dry. Upper extremity show deep tendon reflexes 2+ in the bicep tricep tendons, motor exam strong with 5 out of 5 manager gas strength on the right left wrist shows approximately 3-4 to scale 5 with manager gas strength patient wearing brace on initial presentation. Patient has well- healed surgical scar on the posterior aspect of the left wrist which is well- healed. SKIN: Shows warm and dry, good turgor. No edema. No sores, rashes or bruising throughout. Procedure: Procedure: Options were discussed with patient. Patient chart reviewed his current medication regimen updated current review of systems updated today as well. We will make referral for occupational therapy of patient's left wrist and hand as discussed. Also, we will refill patient's hydrocodone, Flexeril, meloxicam with instructions side effects beware of discussed use of the medications. These jessica l be electronically prescribed to patient's local pharmacy. Patient has had appropriate K tracks report as well as appropriate urinalyses to date and we will refill medications today for 1 month period. Patient will follow up in approximately 4 weeks as scheduled. Medication Injected: Med Injected: None Condition at Discharge: Condition at Discharge: Condition at discharge is stable. TIFFANIE MARTINEZ MD Feb 07, 2021 12:10
== END | disposition home or self-care (01) ==
LOC: PNCL 11:01
PROVIDERS: ATTEND Anesthesiology
DX: M50.10 Cervical disc disorder with radiculopathy, unspecified cervical region (principal); M51.16 Intervertebral disc disorders with radiculopathy, lumbar region; M47.26 Other spondylosis with radiculopathy, lumbar region; M19.012 Primary osteoarthritis, left shoulder; M48.02 Spinal stenosis, cervical region; F17.210 Nicotine dependence, cigarettes, uncomplicated; Z72.89 Other problems related to lifestyle; Z88.8 Allergy status to other drugs, medicaments and biological substances
CPT/HCPCS: 99212; G0463

== ENCOUNTER 2021-03-22 13:23 | Emergency (ER) | payer BC ==
[~2021-03-22] VITALS: Ht 162.6 cm; Wt 84.1 kg
[2021-03-22 14:18] VITALS: BP 132/78
[2021-03-22] MEDS ORDERED: LIDOCAINE 1%/EPI 1:100,000 20 ML VIAL. INJ ONE (14:45)
[2021-03-22] MEDS ORDERED: DIPH,PERTUSS(ACELL),TET VAC/PF 0.5 ML SYRINGE. VAX IM ONE (15:30)
--- NOTE | 2021-03-22 15:30 | PHYS DOC ---
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 Patient is right-handed. (ADRIAN COSME Shannon MULTI SPINDLE OPERATOR) Review of Systems: Review of Systems: Constitutional: Denies fever or chills. []] Musculoskeletal: Denies back pain or joint pain. [] Integument: Reports right hand laceration Neurologic: Denies headache, focal weakness or sensory changes. [] Psychiatric: Denies depression or anxiety. [] (ROBBINAYLINADRIAN Bryant MULTI SPINDLE OPERATOR) Heart Score: C/O Chest Pain: N/A Risk Factors: Risk Factors: DM, Current or recent (<one month) smoker, HTN, HLP, family history of CAD, obesity. Risk Scores: Score 0 - 3: 2.5% MACE over next 6 weeks - Discharge Home Score 4 - 6: 20.3% MACE over next 6 weeks - Admit for Clinical Observation Score 7 - 10: 72.7% MACE over next 6 weeks - Early Invasive Strategies (HAMMADAnnetteADRINA Shannon MULTI SPINDLE OPERATOR) Current Medications: Current Medications Medications (Trade) Dose Ordered Sig/Horacio Start Time Stop Time Status Last Admin Dose Admin Diphtheria/ Tetanus/Acell Pertussis (ADACEL TDap SYRINGE) 0.5 ml ONCE ONCE 03/22/21 15:30 03/22/21 15:31 UNV Lidocaine/ Epinephrine (LIDOCAINE 1%-EPI 1:100,000 Multi-Dose) 20 ml 1X ONCE 03/22/21 14:45 03/22/21 14:46 DC 03/22/21 14:44 20 ML (ADRIAN COSME MULTI SPINDLE OPERATOR) Allergies: Allergies: Allergies Coded Allergies Type Severity Reaction Last Updated Verified adhesive Allergy Intermediate rash 03/22/21 Yes bacitracin Allergy Intermediate removes skin 03/22/21 Yes neomycin Allergy Intermediate removes skin 03/22/21 Yes polymyxin B Allergy Intermediate removes skin 03/22/21 Yes (ADRIAN COSME APRN) Physical Exam: PE: Constitutional: Well developed, well nourished, no acute distress, non-toxic appearance. [] Skin: Right dorsal hand with a C-shaped laceration roughly 4 cm long, there is no obvious tendon involvement. Full range of motion to the right hand and fingers. Adequate radial, medial, ulnar sensation to the right hand. +2 right radial pulse. Cap refill less than 2 seconds to right fingers. Back: No tenderness, no CVA tenderness. [] Extremities: No tenderness, no cyanosis, no clubbing, ROM intact, no edema. [] Neurologic: Alert and oriented X 3, normal motor function, normal sensory function, no focal deficits noted. [] Psychologic: Affect normal, judgement normal, mood normal. [] (ADRIAN COSME APRN) Current Patient Data: Vital Signs: Vital Signs Date Time Temp Pulse Resp B/P (MAP) Pulse Ox O2 Delivery O2 Flow Rate FiO2 03/22/21 14:18 98.1 94 16 132/78 (96) 99 Room Air 98.1 (ADRIAN COSME APRN) EKG: EKG: [] (ADRIAN COSME APRN) Radiology/Procedures: Radiology/Procedures: Laceration/Wound Repair Laceration/Wound Repair : [] Wound Location: Right hand laceration Wound's Depth, Shape:C Wound Length (cm): Approximately 4 cm Wound Explored: clean Irrigated w/ Saline (ccs): 100 Betadine Prep?: Yes Anesthesia: 1% of lidocaine with epinephrine Volume Anesthetic (ccs):approx. 4 cc Wound Repaired With: Ethilon Suture Size/Type: 4.0/interrupted sutures Number of Sutures: 9 Progress : Wound was covered with nonstick dressing (ADRIAN COSME APRN) Course & Med Decision Making: Course & Med Decision Making Pertinent Labs and Imaging studies reviewed. (See chart for details) This is a 55-year-old male patient presenting to the ED today with right hand laceration. Laceration was closed by me as noted in procedures. Tetanus was updated. Wound care instructions and return precautions provided (ADRIAN COSME APRN) Dragon Disclaimer: Dragon Disclaimer: This electronic medical record was generated, in whole or in part, using a voice recognition dictation system. (ADRIAN COSME APRN) Departure Departure Impression: Primary Impression: Laceration of right hand Qualified Codes: S61.411A - Laceration without foreign body of right hand, initial encounter Disposition: HOME / SELF CARE / HOMELESS Condition: STABLE Referrals: JOSH JOHNSON MD (PCP) Follow-up with the emergency room or your own doctor in 7 days for stitches to be removed Patient Instructions: Laceration Care, Adult Additional Instructions: You have a right hand laceration that was closed with stitches. Keep the area clean and dry. Monitor the area for any signs of infection including but not limited to increased redness, warmth, yellow drainage from the area and return to the ED if they occur. Follow-up with your own doctor or the emergency room in 7 days for stitches to be removed Attending Signature Attending Signature I have reviewed the PA/BANK RECONCILIATOR's note and plan of care. I was available for consultation as needed during the patient's visit in the emergency department. I agree with the clinical impression, plan, and disposition. (AMIE TAMAYO DO) ADRIAN COSME APRN Mar 22, 2021 15:30 AMIE TAMAYO DO Mar 22, 2021 15:59
[2021-04-04] MEDS ORDERED: HYDR-2769 PO (12:21)
== END 2021-03-22 15:45 | disposition home or self-care (01) ==
LOC: ER 13:23
DX: S61.411A Laceration without foreign body of right hand, initial encounter (principal); F17.200 Nicotine dependence, unspecified, uncomplicated; Z88.8 Allergy status to other drugs, medicaments and biological substances; Z88.1 Allergy status to other antibiotic agents; W26.8XXA Contact with other sharp object(s), not elsewhere classified, initial encounter; Y93.89 Activity, other specified; Y92.89 Other specified places as the place of occurrence of the external cause; Y99.8 Other external cause status
CPT/HCPCS: 12002; 90471; 90715; 99283; J3490

== ENCOUNTER → 2021-04-04 | Outpatient (CLI) | payer BC ==
[2021-03-22 14:18] VITALS: BP 132/78
[~2021-04-04] MED LIST changes: +CYCL10TA19 PO; -CYCL10TA2 PO
--- NOTE | 2021-04-04 12:20 | PDOC ---
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 Patient reports he is doing very well with his current regimen of medications and has no significant side effects meloxicam seems to be helping some with the arthritic pain he is recently finished occupational therapy for his hands and reports good results with that as well with increased activity usage and comfort. Patient reports his chief complaint still is low back pain bilaterally worse with walking standing changing positions getting up from seated position or sitting for prolonged periods also wakes him from sleep at night least once or twice patient reports is a 10 on scale 10 is worse over the past week 6-7 on average and a 6 its least is a 6 today patient reports aching cramping stabbing constant some shooting pain across the back as well but not radiating to the lower extremities. Patient continues to do stretching strength and exercise on his own as well as walking daily and exercising as to the best of his ability. Patient reports no loss of motor function but significant pain patient with extension of the lumbar spine standing and walking. Physical Exam: VS: Blood pressure is 132/89 pulse 101 respirations 18 temperature 98.6 F height 5 feet 7 inches weight is 184 pounds PE: PHYSICAL EXAMINATION: GENERAL: The patient is awake, alert, oriented, appropriate, very pleasant in demeanor HEENT: Shows normocephalic, atraumatic. Extraocular movements are intact and symmetrical. Oral cavity: Mucous membranes moist and pink. Dentition is intact. NECK: Shows anterior throat supple without palpable lymphadenopathy noted. Swal low reflex symmetrical. CHEST: Shows normal on inspection. Breath sounds are clear bilaterally, distant but no rales or rhonchi. HEART: Shows S1, S2 clear. No murmurs auscultated. ABDOMEN: Soft, nontender, nondistended, obese. No palpable organomegaly is noted. BACK: Shows spine grossly in the midline. Normal-appearing cervical lordotic curvature. There is slightly increased thoracic kyphosis, some minor flattening of the lumbar lordotic curvature. Lumbar paraspinous muscles show symmetrical on inspection, on palpation shows some moderate tenderness diffusely throughout the upper, middle and lower distribution of the paraspinous muscles without specific trigger points, without radiation of pain. The patient has good rotational motion of the lumbar spine, both laterally as well as extension and flexion with significant pain with extension and axial loading of the lumbar spine as well as the right and left lateral rotation greater than 10 degrees with significant pain without radiation forward flexion 45 degrees decreases the pain and is performed without difficulty. No tenderness over the spinous processes, sacrum or sacroiliac regions. EXTREMITIES: Lower extremities show deep tendon reflexes 1 in the patellar and tendo calcaneus tendons. Motor exam is 4 on a scale of 5 with right dorsiflexion, extension, quadriceps and hamstring flexion and 4/5 on the left. Peripheral pulses are 1+ posterior tibial. No peripheral edema is noted bilaterally. Lower extremities are warm and dry to touch, equal in color and appearance. SKIN: Shows warm and dry, good turgor. No edema. No sores, rashes or bruising throughout. Procedure: Procedure: Options were discussed with patient. Patient chart reviews his current medication regimen updated current review of systems updated today as well. We will preauthorize patient for bilateral L4-5 and L5-S1 facet medial branch blocks as he has significant pain in the low back consistent with facetogenic pain bilaterally. Patient also has had appropriate K tracks report as well as appropriate urinalyses to date, and we will refill patient's hydrocodone as well as Flexeril and meloxicam. Patient was encouraged to continue with stretching and strengthening exercises as well as exercise and activity as tolerated. Once preauthorized, patient will return for bilateral L4-5 and L5-S1 medial branch facet blocks with fluoroscopic guidance. Medication Injected: Med Injected: None Condition at Discharge: Condition at Discharge: Condition at discharge is stable. TIFFANIE MARTINEZ MD Apr 04, 2021 12:20
== END | disposition home or self-care (01) ==
LOC: PNCL 11:44
PROVIDERS: ATTEND Anesthesiology
DX: M50.10 Cervical disc disorder with radiculopathy, unspecified cervical region (principal); M48.02 Spinal stenosis, cervical region; M51.36 Other intervertebral disc degeneration, lumbar region; M47.817 Spondylosis without myelopathy or radiculopathy, lumbosacral region; M19.012 Primary osteoarthritis, left shoulder; F17.210 Nicotine dependence, cigarettes, uncomplicated; Z79.01 Long term (current) use of anticoagulants; Z79.899 Other long term (current) drug therapy; Z72.89 Other problems related to lifestyle; Z88.8 Allergy status to other drugs, medicaments and biological substances
CPT/HCPCS: 99212; G0463

== ENCOUNTER → 2021-05-10 | Outpatient (CLI) | payer BC ==
--- NOTE | 2021-05-10 13:47 | PDOC ---
Progress Note - Pain Clinic Date of Service: DOS: DATE: 05/10/21 TIME: 13:45 Diagnosis: Dx: Cervical radiculopathy with cervical spinal stenosis and cervical degenerative disc disease Lumbar radiculopathy with lumbar degenerative disease lumbar spondylosis Left shoulder joint pain with osteoarthritis History or Present Illness: HPI: Telemedicine visit today with patient's identity verified with date of as well as full name, total time spent 12 minutes 55-year-old male with request for medication refill hydrocodone also Flexeril. Patient reports has been doing very well with the medications and has been on a very stable regimen of each of these with appropriate K tracks report as well as appropriate urinalyses to date. Patient reports some moderate pain in the base the neck and shoulder as well as the mid back and low back but fairly well controlled to about a 70% level or so with the medications and has been at this level for an extended period of time. Patient reports no new motor or sensory deficits and no side effects with the medication. We will electronically prescribed a medication for him today with instructions side effects aware d iscussed with each of the medications and patient will follow up in approximate 4 weeks as scheduled. Physical Exam: PE: TIFFANIE MARTINEZ MD May 10, 2021 13:47
== END | disposition home or self-care (01) ==
LOC: PNCL 12:55
PROVIDERS: ATTEND Anesthesiology
DX: M50.10 Cervical disc disorder with radiculopathy, unspecified cervical region (principal); M48.02 Spinal stenosis, cervical region; M51.16 Intervertebral disc disorders with radiculopathy, lumbar region; M47.26 Other spondylosis with radiculopathy, lumbar region; M19.012 Primary osteoarthritis, left shoulder; F17.210 Nicotine dependence, cigarettes, uncomplicated; Z72.89 Other problems related to lifestyle; Z79.899 Other long term (current) drug therapy; Z88.8 Allergy status to other drugs, medicaments and biological substances
CPT/HCPCS: 99212; G0463

== ENCOUNTER → 2021-05-30 | Outpatient (CLI) | payer BC ==
[2021-05-30 12:07] LABS: PROTHROMBIN TIME PATIENT 11.3 SEC (11.7-14.0)
== END | disposition home or self-care (01) ==
LOC: PNCL 11:09
PROVIDERS: ATTEND Anesthesiology
DX: Z01.812 Encounter for preprocedural laboratory examination (principal); F17.210 Nicotine dependence, cigarettes, uncomplicated; Z79.01 Long term (current) use of anticoagulants; Z79.899 Other long term (current) drug therapy; Z72.89 Other problems related to lifestyle; Z88.8 Allergy status to other drugs, medicaments and biological substances
CPT/HCPCS: 36415; 85610

== ENCOUNTER → 2021-06-01 | Outpatient (CLI) | payer BC ==
[~2021-06-01] MED LIST changes: +BUPIVACAINE MPF 0.25% 10 ML VIAL. ONE; +IOHEXOL 180 MG/ML 10 ML VIAL. ONE; +methylPREDNISolone ACETATE 40 MG/ML VIAL. ONE; +methylPREDNISolone ACETATE 80 MG/ML VIAL. ONE
[2021-06-01 14:13] LABS: PROTHROMBIN TIME PATIENT 11.3 SEC (11.7-14.0)
--- NOTE | 2021-06-01 15:11 | PDOC ---
Progress Note - Pain Clinic Date of Service: DOS: DATE: 06/01/21 TIME: 15:08 Diagnosis: Dx: Cervical radiculopathy with cervical spinal stenosis cervical degenerative disc disease Lumbar radiculopathy lumbar degenerative disc disease Left shoulder joint pain with osteoarthritis Lumbar and lumbosacral spondylosis History or Present Illness: HPI: 56-year-old male returns for follow-up last seen regarding medication management with hydrocodone patient doing very well with this but has significant pain in the low back itself bilaterally we discussed treatment with this and he like to proceed with it today we were waiting for his PT and INR to normalize after being off of his Coumadin now with PT of 11.1 INR 0.9. Patient reports still significant pain in the low back bilaterally not radiating to the lower extremities right essentially equal to left at worse with walking standing change position especially extension of the lumbar spine and arching his back patient rates as a 10 on scale 10 is worse over the past week 8-9 on average and 8 its least and is an 8 today. Patient reports is aching sharp tight shooting can be cramping and stabbing and constant with activity especially extension of the lumbar spine. Patient reports no loss of motor function but significant tenderness with standing walking and sitting and does awaken him sleep fairly frequently. Patient reports no side effects with his medications overall about a 70% improvement with medications alone. Physical Exam: VS: Blood pressure is 131/95 pulse 101 respirations are 18 temperature is 98.5 F height is 5 foot 5 inches weight is 186 pounds. PE: PHYSICAL EXAMINATION: GENERAL: The patient is awake, alert, oriented, appropriate, very pleasant in demeanor HEENT: Shows normocephalic, atraumatic. Extraocular movements are intact and symmetrical. Oral cavity: Mucous membranes moist and pink. Dentition is intact. NECK: Shows anterior throat supple without palpable lymphadenopathy noted. Swallow reflex symmetrical. CHEST: Shows normal on inspection. Breath sounds are clear bilaterally, distant and coarse but no rales or rhonchi. HEART: Shows S1, S2 clear. No murmurs auscultated. ABDOMEN: Soft, nontender, nondistended, obese. No palpable organomegaly is noted. BACK: Shows spine grossly in the midline. Normal-appearing cervical lordotic curvature. There is slightly increased thoracic kyphosis, some minor flattening of the lumbar lordotic curvature. Lumbar paraspinous muscles show symmetrical on inspection, on palpation shows some moderate tenderness diffusely throughout the upper, middle and lower distribution of the paraspinous muscles without specific trigger points, without radiation of pain. The patient has good rotational motion of the lumbar spine, both laterally as well as extension and flexion with moderate tenderness with right and left lateral rotation greater than 10 degrees equal significant tenderness with extension greater than 10 degrees but better with forward flexion 45 degrees. EXTREMITIES: Lower extremities show deep tendon reflexes 1 in the patellar and tendo calcaneus tendons. Motor exam is 4 on a scale of 5 with right dorsiflexion, extension, quadriceps and hamstring flexion and 4/5 on the left. Peripheral pulses are 1+ posterior tibial. No peripheral edema is noted bilaterally. Lower extremities are warm and dry. SKIN: Shows warm and dry, good turgor. No edema. No sores, rashes or bruising throughout. Procedure: Procedure: Options were discussed with patient. Patient chart was used with current medication regimen updated current review of systems updated today as well. We will proceed with bilateral L4-5 and L5-S1 facet medial branch blocks today with fluoroscopic guidance. Risks were discussed including but not limited to: Bleeding, infection, possibility of epidural hematoma and subsequent neurological compromise, dural puncture, headaches, spinal cord and/or nerve damage, side effects of steroid medication, and poor results regarding pain control. Patient understands and wished to proceed. Patient will return to the clinic in approximately 4 weeks for follow-up, was counseled return appointment, activity level, and side effects beware of. Medication Injected: Med Injected: Under sterile prep and drape using C-arm fluoroscopic guidance AP and lateral and oblique views, bilateral L4-5 and L5-S1 facet joint MB's injections were performed, using quinke needles with stylette's x4,, medications injected: 120 mg Depo-Medrol +4 cc 0.25% bupivacaine +2 cc contrast. Condition at discharge stable patient tolerated the procedure well and no complications. Condition at Discharge: Condition at Discharge: Condition at discharge stable, paced tolerated procedure well and had no complications. TIFFANIE MARTINEZ MD Jun 01, 2021 15:11
--- NOTE | 2021-06-01 15:12 | PDOC4 ---
Procedure Note: ICD 10 Code: ICD 10 Code: M4 7.816 M4 7.17 Procedure Note: Patient was consented for bilateral L4-5 and L5-S1 medial branch facet blocks with fluoroscopic guidance. Risks were discussed including but not limited to: Bleeding, infection, possibility of epidural hematoma and subsequent neurological compromise, dural puncture, headaches, spinal cord and/or nerve damage, side effects of steroid medication, and poor results regarding pain control. Patient understands and wished to proceed. Under sterile prep and drape using C-arm fluoroscopic guidance AP and lateral and oblique views, bilateral L4-5 and L5-S1 facet joint MB's injections were performed, using quinke needles with stylette's x4,, medications injected: 120 mg Depo-Medrol +4 cc 0.25% bupivacaine +2 cc contrast. Condition at discharge stable patient tolerated the procedure well and no complications. TIFFANIE MARTINEZ MD Jun 01, 2021 15:12
== END | disposition home or self-care (01) ==
LOC: PNCL 14:31
PROVIDERS: ATTEND Anesthesiology
DX: M51.16 Intervertebral disc disorders with radiculopathy, lumbar region (principal); M47.27 Other spondylosis with radiculopathy, lumbosacral region; M47.816 Spondylosis without myelopathy or radiculopathy, lumbar region; M50.10 Cervical disc disorder with radiculopathy, unspecified cervical region; M48.02 Spinal stenosis, cervical region; M19.012 Primary osteoarthritis, left shoulder; F17.210 Nicotine dependence, cigarettes, uncomplicated; Z79.01 Long term (current) use of anticoagulants; Z79.899 Other long term (current) drug therapy; Z98.890 Other specified postprocedural states; Z72.89 Other problems related to lifestyle; Z88.8 Allergy status to other drugs, medicaments and biological substances
CPT/HCPCS: 36415; 64493; 64494; 85610; J1030; J1040; J3490; Q9965

== ENCOUNTER → 2021-06-25 | Outpatient (CLI) | payer BC ==
[~2021-06-25] MED LIST changes: -BUPIVACAINE MPF 0.25% 10 ML VIAL. ONE; -IOHEXOL 180 MG/ML 10 ML VIAL. ONE; +OXYC1TAB20 PO; -methylPREDNISolone ACETATE 40 MG/ML VIAL. ONE; -methylPREDNISolone ACETATE 80 MG/ML VIAL. ONE
--- NOTE | 2021-06-25 15:31 | NUR ---
Patient called requesting a medication refill. Verified name , , Pharmacy, next appointment. Patient denied any constipation, new medical problems, states his pain level is an 8. Ktrats checked no problems, call transferred to Dr Johnson
--- NOTE | 2021-06-25 15:51 | PDOC ---
Progress Note - Pain Clinic Date of Service: DOS: DATE: 06/25/21 TIME: 15:49 Diagnosis: Dx: Cervical radiculopathy with cervical spinal stenosis and cervical degenerative disc disease Lumbar radiculopathy with lumbar degenerative disease and lumbar and lumbosacral spondylosis Left shoulder joint pain with osteoarthritis History or Present Illness: HPI: Telemedicine visit today with patient today with identity verified with complete date of as well as full name, total time spent 11 minutes 56-year-old male via telemedicine visit today requesting refill medications patient taking hydrocodone as well as meloxicam and Flexeril patient reports she is doing fairly well with the Flexeril and meloxicam is not having much of a difference with the hydrocodone does not cause any specific side effects but medications not decrease his pain very significant usually about a 70% improvement now is about a 40 to 50% improvement with the hydrocodone. We discussed this in some detail today we will change his to oxycodone as he seems to be developing some physiologic tolerance to hydrocodone at this time. Patient has had appropriate K tracks report as well as appropriate urinalyses to date we will make this change and will E scribe the medication for him. Patient given instructions well side effects to be aware of with each of the medications. Patient will follow up in approximate 30 days as scheduled. Physical Exam: PE: TIFFANIE MARTINEZ MD Jun 25, 2021 15:51
== END | disposition home or self-care (01) ==
LOC: PNCL 13:17
PROVIDERS: ATTEND Anesthesiology
DX: M50.10 Cervical disc disorder with radiculopathy, unspecified cervical region (principal); M51.16 Intervertebral disc disorders with radiculopathy, lumbar region; M47.27 Other spondylosis with radiculopathy, lumbosacral region; M19.012 Primary osteoarthritis, left shoulder; M48.02 Spinal stenosis, cervical region; F17.210 Nicotine dependence, cigarettes, uncomplicated; Z79.899 Other long term (current) drug therapy; Z72.89 Other problems related to lifestyle; Z88.8 Allergy status to other drugs, medicaments and biological substances
CPT/HCPCS: 99212; G0463

== ENCOUNTER → 2021-07-23 | Outpatient (CLI) | payer BC ==
--- NOTE | 2021-07-23 13:57 | PDOC ---
Progress Note - Pain Clinic Date of Service: DOS: DATE: 07/23/21 TIME: 13:51 Diagnosis: Dx: Lumbar degenerative disc disease with lumbar and lumbosacral spondylosis Cervical radiculopathy with cervical spinal stenosis and cervical degenerative disc disease Left shoulder joint pain with osteoarthritis History or Present Illness: HPI: 56-year-old male returns for follow-up with medication management and status post lumbar facet medial branch blocks May 2021. Patient did very well with the facet blocks reports the pain returned after several weeks following the injections patient reports doing well with the medication management however patient taking oxycodone up to 3 times daily with good results and reduction in pain about 70% overall with medications. Patient reports still significant pain in the low back that is above that which the oxycodone is covering rated 10 on scale 10 is worst 8 on average 7 at its least is a 7 today. Patient reports aching and sharp can be shooting burning cramping and stabbing quality mostly in the back itself does not radiate to the lower extremities currently. Patient reports no loss of motor function no bowel or bladder incontinence. Patient reports pain worse in the low back with rotation of motion more to the right than the left and present bilaterally as well as extension and axial loading lumbar spine significantly painful with this. Again after medial branch facet blocks patient did very well about 80% improvement for several weeks following the injection. Patient has had appropriate K tracks reporting as well as appropriate urinalyses to date as well. Physical Exam: VS: Blood pressure is 130/84 pulse 98 respirations 18 temperature is 98.2 F height is 5 feet 4 inches weight is 192 pounds PE: PHYSICAL EXAMINATION: GENERAL: The patient is awake, alert, oriented, appropriate, very pleasant in demeanor HEENT: Shows normocephalic, atraumatic. Extraocular movements are intact and symmetrical. Oral cavity: Mucous membranes moist and pink. NECK: Shows anterior throat supple without palpable lymphadenopathy noted. Swallow reflex symmetrical. CHEST: Shows normal on inspection. Breath sounds are clear bilaterally, distant but no rales or rhonchi. HEART: Shows S1, S2 clear. No murmurs auscultated. ABDOMEN: Soft, nontender, nondistended. No palpable organomegaly is noted. BACK: Shows spine grossly in the midline. Normal-appearing cervical lordotic curvature. There is slightly increased thoracic kyphosis, some minor flattening of the lumbar lordotic curvature. Lumbar paraspinous muscles show symmetrical on inspection, on palpation shows some moderate tenderness diffusely throughout the upper, middle and lower distribution of the paraspinous muscles without specific trigger points, without radiation of pain. The patient has good rotational motion of the lumbar spine, both laterally as well as extension and flexion with moderate tenderness with bilateral right and left lower back rotation as well as significant tenderness with extension of the lumbar spine again worse on the right side than the left forward flexion is performed at 45 degrees without significant difficulty or pain reported. EXTREMITIES: Lower extremities show deep tendon reflexes 1+ in the patellar and tendo calcaneus tendons. Motor exam is 4 on a scale of 5 with right dorsiflexion, extension, quadriceps and hamstring flexion and 4/5 on the left. Peripheral pulses are 1+ posterior tibial. No peripheral edema is noted bilaterally. Lower extremities are warm and dry to touch, equal in color and appearance. SKIN: Shows warm and dry, good turgor. No edema. No sores, rashes or bruising throughout. Procedure: Procedure: Options were discussed with the patient. Patient's old chart was reviewed his his current medication regimen updated current review of systems updated today as well. We will proceed with refill of oxycodone 10/325 with instructions side effects aware discussed with the medication. Also refill patient's cyclobenzaprine and patient will maintain meloxicam but does not need refill currently. Again patient has had appropriate detection urinalyses to date. We will also have urinalysis drawn today as part of routine screening. Patient will follow-up in approximate 30 days as scheduled. Medication Injected: Med Injected: None Condition at Discharge: Condition at Discharge: Condition at discharge is stable. TIFFANIE MARTINEZ MD Jul 23, 2021 13:57
== END | disposition home or self-care (01) ==
LOC: PNCL 13:17
PROVIDERS: ATTEND Anesthesiology
DX: M51.36 Other intervertebral disc degeneration, lumbar region (principal); M48.02 Spinal stenosis, cervical region; M50.10 Cervical disc disorder with radiculopathy, unspecified cervical region; M19.012 Primary osteoarthritis, left shoulder; F17.210 Nicotine dependence, cigarettes, uncomplicated; Z79.899 Other long term (current) drug therapy; Z88.8 Allergy status to other drugs, medicaments and biological substances
CPT/HCPCS: 99212; G0463

== ENCOUNTER → 2021-09-05 | Outpatient (CLI) | payer BC ==
--- NOTE | 2021-09-05 13:19 | NUR ---
Pt. called clinic requesting a refill/escribe on his oxycodone. Pt. states no new health issues or side effects from the med. Denies constipation. Pharmacy verified and next appt verified. States usual pain level is 8/10. Dr. Johnson spoke with pt via phone prior to E-scribing. Josiah Esteban RN
--- NOTE | 2021-09-05 14:17 | PDOC ---
Progress Note - Pain Clinic Date of Service: DOS: DATE: 09/05/21 TIME: 14:14 Diagnosis: Dx: Cervical radiculopathy with cervical spinal stenosis cervical degenerative disc disease Lumbar radiculopathy with lumbar degenerative disease and lumbar spondylosis Left shoulder joint pain with osteoarthritis History or Present Illness: HPI: 56-year-old male via telemedicine visit today with full date of as well as full name for identification, total time spent 11 minutes 56-year-old male via telemedicine visit for refill of medication of meloxicam 15 mg, and oxycodone 10 mg/325. Patient reports he is doing very well with this with about a 70% improvement with medication still some pain in the low back as well as the neck and shoulders exacerbated with some recent colder weather we have had and also with shoveling of snow. Patient reports however he notices limitations with his activities and is able to gauge this fairly well with the medications and what he can cover. Patient reports no side effects no constipation no nausea no dysphoria memory issues or itching. Patient has had appropriate K tracks report as well as appropriate urinalyses to date as well. We will refill patient's medication for 30-day supply and patient will follow up in approximate 30 days as scheduled. Patient was given instructions as well as side effects aware of with each of the medications. Physical Exam: PE: TIFFANIE MARTINEZ MD Sep 05, 2021 14:17
--- NOTE | 2021-09-11 11:36 | FMN ---
PT PROBLEMS Addendum for visit September 05, 2021 Telemedicine visit via telephone, voice only. TIFFANIE MARTINEZ MD Sep 11, 2021 11:36
== END | disposition home or self-care (01) ==
LOC: PNCL 13:42
PROVIDERS: ATTEND Anesthesiology
DX: M50.10 Cervical disc disorder with radiculopathy, unspecified cervical region (principal); M48.02 Spinal stenosis, cervical region; M51.16 Intervertebral disc disorders with radiculopathy, lumbar region; M47.26 Other spondylosis with radiculopathy, lumbar region; M19.011 Primary osteoarthritis, right shoulder; F17.210 Nicotine dependence, cigarettes, uncomplicated; Z79.899 Other long term (current) drug therapy; Z88.8 Allergy status to other drugs, medicaments and biological substances
CPT/HCPCS: 99212; G0463

== ENCOUNTER → 2021-09-17 | Outpatient (CLI) | payer BC ==
[~2021-09-17] MED LIST changes: +BUPIVACAINE MPF 0.25% 10 ML VIAL. ONE; +DEXAMETHASONE PRES.FREE 10 MG/ML VIAL. ONE; +IOHEXOL 180 MG/ML 10 ML VIAL. ONE
--- NOTE | 2021-09-17 13:07 | PDOC4 ---
Procedure Note: ICD 10 Code: ICD 10 Code: M4 7.816 M4 7.817 Procedure Note: Patient was consented for bilateral L4-5 and L5-S1 level medial branch facet blocks with fluoroscopic guidance. Risks were discussed including but not limited to: Bleeding, infection, possibility of epidural hematoma and subsequent neurological compromise, dural puncture, headaches, spinal cord and/or nerve damage, side effects of steroid medication, and poor results regarding pain control. Patient understands and wished to proceed. Under sterile prep and drape using C-arm fluoroscopic guidance AP and lateral and oblique views, bilateral L4-5 and L5-S1 facet joint MB's injections were performed, using quinke needles with stylette's x4,, medications injected: 20 mg dexamethasone +4 cc 0.25% bupivacaine +2 cc contrast. Condition at discharge s table patient tolerated the procedure well and no complications. TIFFANIE MARTINEZ MD Sep 17, 2021 13:07
--- NOTE | 2021-09-17 13:07 | PDOC ---
Progress Note - Pain Clinic Date of Service: DOS: DATE: 09/17/21 TIME: 13:02 Diagnosis: Dx: Lumbar and lumbosacral spondylosis Cervical radiculopathy with cervical spinal stenosis cervical degenerative disc disease Left shoulder joint pain with osteoarthritis History or Present Illness: HPI: 56-year-old male returns for follow-up status post medication management with oxycodone as well as Flexeril. Patient reports to be doing fairly well at this he is having significant pain however in the low back right greater than left across the low back worse with walking standing changing positions getting up from seated position especially in for some prolonged sitting and standing significant pain in the back without significant radiation into the lower extremities patient reports aching sharp tight shooting across the back cramping stabbing radiating can be constant severe especially with standing but better with sitting or riding in the car changing positions significantly exacerbated the pain as well. Patient reports no bowel or bladder incontinence rates his pain is a 10 on scale 10 is worse over the past week 7-8 on average 6 at its least and is a 7 today. Patient reports pain waking her from sleep at night occasionally but most nights he sleeps fairly well is when he gets up in the morning the pain is more excruciating. Patient reports no bowel or bladder incontinence. Physical Exam: VS: Blood pressure is 144/108 pulse 103 respirations 18 temperature 98.3 F height is 5 foot 4 inches weight is 184 pounds. PE: PHYSICAL EXAMINATION: GENERAL: The patient is awake, alert, oriented, appropriate, very pleasant in demeanor HEENT: Shows normocephalic, atraumatic. Extraocular movements are intact and symmetrical. Oral cavity: Mucous membranes moist and pink. Dentition is intact. NECK: Shows anterior throat supple without palpable lymphadenopathy noted. Swallow reflex symmetrical. CHEST: Shows normal on inspection. Breath sounds are clear bilaterally, distant but no rales or rhonchi. HEART: Shows S1, S2 clear. No murmurs auscultated. ABDOMEN: Soft, nontender, nondistended. No palpable organomegaly is noted. BACK: Shows spine grossly in the midline. Normal-appearing cervical lordotic curvature. There is slightly increased thoracic kyphosis, some minor flattening of the lumbar lordotic curvature. Lumbar paraspinous muscles show symmetrical on inspection, on palpation shows some moderate tenderness diffusely throughout the upper, middle and lower distribution of the paraspinous musculature without specific trigger points, without radiation of pain. The patient has good rotational motion of the lumbar spine, both laterally as well as extension and flexion with significant tenderness with extension and axial loading of the lumbar spine more on the right than the left but present bilaterally without radiation to the lower extremities, right and left lateral rotation provokes significant tenderness as well more on the right than the left and forward flexion is performed with only minimal increase in low back pain. EXTREMITIES: Lower extremities show deep tendon reflexes 1+ in the patellar and tendo calcaneus tendons. Motor exam is 4 on a scale of 5 with right dorsiflexion, extension, quadriceps and hamstring flexion and 4/5 on the left. Peripheral pulses are 1+ posterior tibial. No peripheral edema is noted bilaterally. Lower extremities are warm and dry to touch, equal in color and appearance. SKIN: Shows warm and dry, good turgor. No edema. No sores, rashes or bruising throughout. Procedure: Procedure: Options were discussed with the patient. Patient's old chart was viewed as was his current medication regimen updated and current review of systems updated today as well. We will proceed with bilateral L4-5 and L5-S1 level medial branch blocks with fluoroscopic guidance. Risks were discussed including but not limited to: Bleeding, infection, possibility of epidural hematoma and subsequent neurological compromise, dural puncture, headaches, spinal cord and/or nerve damage, side effects of steroid medication, and poor results regarding pain control. Patient understands and wished to proceed. Patient will return to the clinic in approximately 2 weeks for follow-up, was counseled as to return appointment, activity level, and side effects to be aware of. Medication Injected: Med Injected: Under sterile prep and drape using C-arm fluoroscopic guidance AP and lateral and oblique views, bilateral L4-5 and L5-S1 facet joint MB's injections were performed, using quinke needles with stylette's x4,, medications injected: 20 mg dexamethasone +4 cc 0.25% bupivacaine +2 cc contrast. Condition at discharge stable patient tolerated the procedure well and no complications. Condition at Discharge: Condition at Discharge: Condition at discharge stable, patient Vini the procedure well and had no complications. TIFFANIE MARTINEZ MD Sep 17, 2021 13:07
== END | disposition home or self-care (01) ==
LOC: PNCL 11:44
PROVIDERS: ATTEND Anesthesiology
DX: M47.817 Spondylosis without myelopathy or radiculopathy, lumbosacral region (principal); M47.816 Spondylosis without myelopathy or radiculopathy, lumbar region; M50.10 Cervical disc disorder with radiculopathy, unspecified cervical region; M48.02 Spinal stenosis, cervical region; M19.012 Primary osteoarthritis, left shoulder; F17.210 Nicotine dependence, cigarettes, uncomplicated; Z79.899 Other long term (current) drug therapy; Z98.890 Other specified postprocedural states; Z72.89 Other problems related to lifestyle; Z88.8 Allergy status to other drugs, medicaments and biological substances
CPT/HCPCS: 64493; 64494; J1100; J3490; Q9965; 64495

== ENCOUNTER → 2021-10-08 | Outpatient (CLI) | payer BC ==
[~2021-10-08] MED LIST changes: -BUPIVACAINE MPF 0.25% 10 ML VIAL. ONE; -DEXAMETHASONE PRES.FREE 10 MG/ML VIAL. ONE; -IOHEXOL 180 MG/ML 10 ML VIAL. ONE
[2021-10-08 10:08] LABS: PROTHROMBIN TIME PATIENT 11.4 SEC (11.7-14.0)
== END | disposition home or self-care (01) ==
LOC: LAB 09:29
PROVIDERS: ATTEND Anesthesiology
DX: M54.9 Dorsalgia, unspecified (principal); R79.1 Abnormal coagulation profile; F17.210 Nicotine dependence, cigarettes, uncomplicated; Z79.01 Long term (current) use of anticoagulants; Z79.899 Other long term (current) drug therapy; Z88.8 Allergy status to other drugs, medicaments and biological substances; Z72.89 Other problems related to lifestyle
CPT/HCPCS: 36415; 85610

== ENCOUNTER → 2021-10-08 | Outpatient (CLI) | payer BC ==
[~2021-10-08] MED LIST changes: +BUPIVACAINE MPF 0.25% 10 ML VIAL. ONE; +DEXAMETHASONE PRES.FREE 10 MG/ML VIAL. ONE; +IOHEXOL 180 MG/ML 10 ML VIAL. ONE
--- NOTE | 2021-10-08 13:44 | PDOC ---
Progress Note - Pain Clinic Date of Service: DOS: DATE: 10/08/21 TIME: 13:40 Diagnosis: Dx: Lumbar degenerative disease lumbar and lumbosacral spondylosis Cervical radiculopathy cervical spinal stenosis cervical degenerative disease Left shoulder joint pain with osteoarthritis History or Present Illness: HPI: 56-year-old male returns for follow-up status post lumbar facet medial branch blocks with near undersign improvement for 2 days after the injection patient reports he was still taking some pain medication but the pain was reduced significantly patient reports that the pain medication is on his normal regimen was not anything different but the pain was reduced significantly after the last injections patient reports increasing his distance walking doing household activities travel with greater ease and comfort sitting for longer periods getting up and down from sitting and standing for much greater comfort patient reports his pain now is returning is a 10 on scale 10 is worse over the past week 7-8 on average 4 to [place] is a 7 today patient scribes it intermittent worse with standing walking better with sitting or laying down but with prolonged sitting greater than 30 to 40 minutes it does exacerbate the pain patient reports his pain is aching and sharp in the back tight and shooting cramping and stabbing can be radiating constant on and off in intensity with activity. Patient reports it wakes him from sleep occasionally but not most nights. Patient reports no bowel or bladder incontinence. He did have a PT/INR drawn today showing PT of 11.4 and INR of 0.9. Physical Exam: VS: Blood pressure is 151/108 pulse is 96 respirations 20 temperature is 98.0 F height is 5 foot 4 inches weight is 191 pounds. PE: PHYSICAL EXAMINATION: GENERAL: The patient is awake, alert, oriented, appropriate, very pleasant in demeanor HEENT: Shows normocephalic, atraumatic. Extraocular movements are intact and symmetrical. Full patel and mustache. Oral cavity: Mucous membranes moist and pink. Dentition is intact. NECK: Shows anterior throat supple without palpable lymphadenopathy noted. Swallow reflex symmetrical. CHEST: Shows normal on inspection. Breath sounds are clear bilaterally, no rales or rhonchi. HEART: Shows S1, S2 clear. No murmurs auscultated. ABDOMEN: Soft, nontender, nondistended. No palpable organomegaly is noted. BACK: Shows spine grossly in the midline. Normal-appearing cervical lordotic curvature. There is mildly increased thoracic kyphosis, some flattening of the lumbar lordotic curvature. Lumbar paraspinous muscles show symmetrical on inspection, on palpation shows some moderate tenderness diffusely throughout the upper, middle and lower distribution of the paraspinous muscles, but without specific trigger points, without radiation of pain. The patient has good rotational motion of the lumbar spine, both laterally as well as extension and flexion with tenderness with extension and axial loading the lumbar spine more on the right than the left and present bilaterally also with lateral rotation greater to the right and left greater than 10 degrees but with forward flexion performed at 45 degrees without significant pain reported. EXTREMITIES: Lower extremities show deep tendon reflexes 1+ in the patellar and tendo calcaneus tendons. Motor exam is 4 on a scale of 5 with right dorsiflexion, extension, quadriceps and hamstring flexion and 4/5 on the left. Peripheral pulses are 1+ posterior tibial. No peripheral edema is noted bilaterally. Lower extremities are warm and dry. SKIN: Shows warm and dry, good turgor. No edema. No sores, rashes or bruising throughout. Procedure: Procedure: Options discussed with the patient. Patient's chart was reviewed his current medication regimen updated current review of systems updated today as well. We will proceed with a bilateral L4-5 and L5-S1 facet medial branch blocks today with fluoroscopic guidance. Risks were discussed including but not limited to: Bleeding, infection, possibility of epidural hematoma and subsequent neurological compromise, dural puncture, headaches, spinal cord and/or nerve damage, side effects of steroid medication, and poor results regarding pain control. Patient understands and wished to proceed. Patient will return to clinic in approximately 2 weeks for follow-up, was counseled as to return appointment, activity level, and side effect to be aware of. Medication Injected: Med Injected: Under sterile prep and drape using C-arm fluoroscopic guidance AP and lateral and oblique views, bilateral L4-5 and L5-S1 facet joint MB's injections were performed, using quinke needles with stylette's x4,, medications injected: 20 mg dexamethasone +4 cc 0.25% bupivacaine +2 cc contrast. Condition at discharge stable patient tolerated the procedure well and no complications. Condition at Discharge: Condition at Discharge: Condition at discharge stable, paced tolerated procedure well and had no complications. TIFFANIE MARTINEZ MD Oct 08, 2021 13:44
--- NOTE | 2021-10-08 13:44 | PDOC4 ---
Procedure Note: ICD 10 Code: ICD 10 Code: M4 7.816 M4 7.817 Procedure Note: Patient was consented for bilateral lumbar facet medial branch blocks with fluoroscopic guidance. Risks were discussed including but not limited to: Bleeding, infection, possibility of epidural hematoma and subsequent neurological compromise, dural puncture, headaches, spinal cord and/or nerve damage, side effects of steroid medication, and poor results regarding pain control. Patient understands and wished to proceed. Under sterile prep and drape using C-arm fluoroscopic guidance AP and lateral and oblique views, bilateral L4-5 and L5-S1 facet joint MB's injections were performed, using quinke needles with stylette's x4,, medications injected: 20 mg dexamethasone +4 cc 0.25% bupivacaine +2 cc contrast. Condition at discharge stable patient tolerated the procedure well and no complications. TIFFANIE MARTINEZ MD Oct 08, 2021 13:44
== END | disposition home or self-care (01) ==
LOC: PNCL 11:48
PROVIDERS: ATTEND Anesthesiology
DX: M51.36 Other intervertebral disc degeneration, lumbar region (principal); M47.817 Spondylosis without myelopathy or radiculopathy, lumbosacral region; M47.816 Spondylosis without myelopathy or radiculopathy, lumbar region; M50.10 Cervical disc disorder with radiculopathy, unspecified cervical region; M48.02 Spinal stenosis, cervical region; M19.012 Primary osteoarthritis, left shoulder; F17.210 Nicotine dependence, cigarettes, uncomplicated; Z72.89 Other problems related to lifestyle; Z79.899 Other long term (current) drug therapy; Z98.890 Other specified postprocedural states
CPT/HCPCS: 64493; 64494; J1100; J3490; Q9965

== ENCOUNTER → 2021-12-07 | Outpatient (CLI) | payer BC ==
[~2021-12-07] MED LIST changes: -BUPIVACAINE MPF 0.25% 10 ML VIAL. ONE; -DEXAMETHASONE PRES.FREE 10 MG/ML VIAL. ONE; -IOHEXOL 180 MG/ML 10 ML VIAL. ONE
--- NOTE | 2021-12-07 11:19 | PDOC ---
Progress Note - Pain Clinic Date of Service: DOS: DATE: 12/07/21 TIME: 11:15 Diagnosis: Dx: Lumbar and lumbosacral spondylosis Cervical radiculopathy with cervical spinal stenosis and cervical degenerative disc disease Left shoulder joint pain with osteoarthritis History or Present Illness: HPI: 56-year-old male returns for follow-up status post bilateral L4-5 and L5-S1 facet medial branch blocks. Patient did very well with about 90% improvement 200% improvement for several days following the diagnostic blocks the pain re turning down the low back bilaterally patient reports worse with walking standing changing position especially standing and extending which is reaching his hands over his head patient reports is a 10 on scale 10 is worse over the past week 8 on average 5-6 on its least and is a 8 today. Patient reports radiating across the low back severe but no radiation to the lower extremities is aching sharp in the back tight and shooting as well. Patient reports no bowel or bladder incontinence no new motor or sensory deficits but significant fatigability in the bilateral lower extremities with ambulation and standing. Patient also taking oxycodone 10 mg up to 3 times daily with good results and without any specific side effects. Patient is had appropriate K tracks report as well as appropriate urinalyses to date. Physical Exam: VS: Blood pressure is 131/88 pulse 90 respirations 18 temperature 90.1 F weight is 189 pounds. PE: PHYSICAL EXAMINATION: GENERAL: The patient is awake, alert, oriented, appropriate, very pleasant in demeanor HEENT: Shows normocephalic, atraumatic. Extraocular movements are intact and symmetrical. Oral cavity: Mucous membranes moist and pink. Dentition is intact. NECK: Shows anterior throat supple without palpable lymphadenopathy noted. Swallow reflex symmetrical. CHEST: Shows normal on inspection. Breath sounds are clear bilaterally. HEART: Shows S1, S2 clear. No murmurs auscultated. ABDOMEN: Soft, nontender, nondistended. No palpable organomegaly is noted. BACK: Shows spine grossly in the midline. Normal-appearing cervical lordotic curvature. There is slightly increased thoracic kyphosis, some minor flattening of the lumbar lordotic curvature. Lumbar paraspinous muscles show symmetrical on inspection, on palpation shows some moderate tenderness diffusely throughout the upper, middle and lower distribution of the paraspinous muscles bilaterally and also into the lower thoracic paraspinous musculature, firm and tender, but without specific trigger points, without radiation of pain. The patient has good rotational motion of the lumbar spine, both laterally as well as extension and flexion with significant tenderness in the lumbar spine with extension and axial loading lumbar spine with 10 degrees extension and forward flexion 45 degrees is performed without significant difficulty right left lateral rotation shows significant tenderness bilaterally but without radiation to the lower extremities. EXTREMITIES: Lower extremities show deep tendon reflexes 1+ in the patellar and tendo calcaneus tendons. Motor exam is 4 on a scale of 5 with right dorsiflexion, extension, quadriceps and hamstring flexion and 4/5 on the left. Peripheral pulses are 1+ posterior tibial. No peripheral edema is noted bilaterally. Lower extremities are warm and dry to touch, equal in color and appearance. SKIN: Shows warm and dry, good turgor. No edema. No sores, rashes or bruising throughout. Procedure: Procedure: Options were discussed with the patient. Patient's old chart was reviewed as stated current medication regimen updated current review of systems updated today as well. We will proceed with holding his Coumadin for 5 days with the PT and INR pending, for repeat bilateral lumbar facet medial branch blocks. Also, will refill patient's medication via electronic prescription for oxycodone 10 mg #90. Patient was given instructions as well as side effects related with the medication. Medication Injected: Med Injected: None Condition at Discharge: Condition at Discharge: Condition at discharge stable. TIFFANIE MARTINEZ MD December 07, 2021 11:19
== END | disposition home or self-care (01) ==
LOC: PNCL 10:02
PROVIDERS: ATTEND Anesthesiology
DX: M47.817 Spondylosis without myelopathy or radiculopathy, lumbosacral region (principal); M47.816 Spondylosis without myelopathy or radiculopathy, lumbar region; M50.10 Cervical disc disorder with radiculopathy, unspecified cervical region; M48.02 Spinal stenosis, cervical region; M19.012 Primary osteoarthritis, left shoulder; F17.210 Nicotine dependence, cigarettes, uncomplicated; Z79.899 Other long term (current) drug therapy; Z88.8 Allergy status to other drugs, medicaments and biological substances
CPT/HCPCS: 99212; G0463